=== PATIENT | female | born 1955 | race Caucasian/White ===

== ENCOUNTER → 2018-04-02 02:06 | Emergency (ER) | payer BC, MEDICARE ==
--- OUTSIDE RECORDS SUMMARY | 2018-04-02 02:32 | XMS REPORT ---
:1955 External Reference #:[id number] Author Organization [facility] Address [address] [place] [address] Phone [phone] Care Team Providers Name Role Phone Marisabel Stockton M.D. Primary Care Physician Unavailable Payers Type Date Identification Numbers Payment Provider Subscriber Commercial Effective: Policy Number: Lulu Fernandez 2017 [id number] Group Name: [place] of [place] [address] PayID: [id number] MAR[place]N Aguilar [id number] Medigap Part B Effective: Policy Number: Lulu Fernandez 2011 [id number] Expires: 2017 Group Name: BC/BS of [place] [address] PayID: [id number] MARILYN Aguilar [id number] Health Maintenance Effective: Policy Number: [facility] ([facility]) 09/02/1999 [id number] Rebecca Expires: 09/01/2012 Group Number: [id number] [address] PayID: [id number] [place] [address] Medigap Part B Effective: Policy Number: Lulu Fernandez 09/07/2005 [id number] Expires: 03/02/2010 Group Number: [id number] [address] [address] Group Name: BC/[place] [id number] PayID: [id number] Medigap Part B Effective: Policy Number: [employer](Open Choice) Aaron Fernandez 09/02/2012 [id number] PayID: [id number] [address] [place] [address] Problems Date Description Provider Status Onset: 05/10/2012 Disorder of bone Marisabel Stockton M.D. Active Onset: 10/18/2015 Osteochondropathy Marisabel Stockton M.D. Active Family History Date Family Member(s) Problem(s) Comments : (age Father due to DC 78 Years) Father Hyperlipidemia Father HTN Onset: (age 84 Mother COPD age 88, Years) complications of aspiration of tablet and atelectasis/ pneumothorax Mother Former Smoker First Brother No Current Problems Second Brother No Current Problems : (age Paternal Grandfather due to Old Age 92 Years) Onset: (age 92 Paternal Grandmother Old Age Years) : (age Maternal Grandfather due to Pneumonia 78 Years) : (age Maternal Grandmother due to Brain 40 Years) Tumor Social History Type Date Description Comments Marital Status Lives With Spouse 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- [employer] Cigarette Use Never Smoked Cigarettes ETOH Use Currently consumes 1 glasses (sometimes 2 glasses per of wine daily day) Recreational Drug Use Denies Drug Use Daily Caffeine Consumes on average 1 cup of coffee per day Exercise Type/Frequency exercises regularly Sun Exposure moderate amount of sun exposure Sun Exposure Uses sunscreen or covers up Seat Belt/Car Seat always uses seat belt 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, with coloposcopy 2000 paps normal since Allergies, Adverse Reactions, Alerts Date Description Reaction Status Severity Comments 10/18/2016 Bee Sting active Moderate to Severe near anaphylaxis (needed steroids, no epi) 01/05/2017 Celery active 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 Mouth Once Blegen, Weekly For M.D. Vitamin-D Deficiency Multiple 04/12 Active Tablets over 50 Marisabel Vitamins/Womens P. Blegen, M.D. Clobetasol 04/07 Active Cream 0.05% 15gm use once per N76.1 Marisabel day to vulva P. as directed Blegen, for 1-2 M.D. weeks Amoxicillin 09/13 Hx Tablets 500mg 20tab take 1 J01.90 Orlin s tablet by [place] - mouth every , 10/17 12 hours for 10 days for infection. Do not fill until patient calls. Vitamin D 02/23 Hx Capsules [id number] 4caps Take 1 Marisabel (Ergocalciferol Capsule By P. ) - Mouth Once Blegen, 06/03 Weekly For .D. Vitamin D Deficiency Ciprodex 01/11 Hx Suspension 0.3-0.1% 50ml instill 4 drops into [place] - affected ear , 09/13 2 times per day for 5 days for outer ear inflammation caused by infection Ergocalciferol 10/31 Hx Capsules [id number] 4caps one by mouth Q Week for P. - vitamin d Blegen, 02/23 deficiency M.D. No Active 01/01 Hx Unknown Medications - 01/01 Omeprazole 04/[address] 20mg 30cap 1 by mouth 530.81 Madison s every day Doreen Mckenzie M.D., 01/01 R.D. /2014 Ilotycin 02/10 Hx Ointment 5mg/GM 1unit apply a thin 782.9 s layer to Mandie, - right outer COLLECTIONS SPECIALIST-C 01/01 eyelid twice /2014 a day Vitamin D-3 03/19 Hx Tablets 2000Unit 1 po qd P. - Blegen, 04/12 M.D. Valtrex 02/19 Hx Tablets 1gm 8tabs take two tablets by P. - mouth twice Blegen, 01/01 a day for 1 M.D. day as needed for cold sore outbreak Amoxicillin 02/10 Hx Tablets 875mg 20tab 1 by mouth 461.8 Madison s twice a day Doreen Mckenzie M.D., 10/18 R.D. /2015 Ranitidine HCL 06/13 Hx Tablets 150mg 60tab 1 po bid prn Marisabel s for P. - heartburn Blegen, 04/12 M.D. Doxycycline 06/13 Hx Capsules 100mg 2caps 2 po x 1 for Marisabel Monohydrate /2008 lyme P. - prophylaxis Blegen, 04/12 M.D. Pantoprazole 05/[address] 40mg 30tab one po qd as Marisabel Sodium s directed for P. - gerd Blegen, 04/12 M.D. Evista 03/21 Hx Tablets 60mg 30tab 1 po qd Marisabel s P. - Blegen, 03/21 M.D. Evista 03/21 Hx Tablets 60mg 30tab 1 po qd 733.99 Alaina s A. - Hyun, 02/18 F.N.P.C. /2012 Premarin 02/27 Hx Cream 0.625mg/G 1Tube apply 627.8 Marisabel Vaginal M intravaginal P. - ly up to qd Blegen, 02/18 x 2 weeks M.D. then up to twice per week Protonix 05/08 Hx Tablets 40mg 30tab 1 po qd s P. - Blegen, 04/16 M.D. Kenalog 02/14 Hx Cream 0.1% 30G Apply bid To 692.6 Itchy Rash Miranda Ace, 04/16 M.D. Fosamax 02/15 Hx Tablets 70mg 4tabs One Q Week Marisabel On Empty P. - Stomach DO Blegen, 04/16 Not Lie Down M.D. /2007 For At Least 1/2 HR After Taking Protonix 02/09 Hx 40mg 30uni one qd Miroslava /2003 ts Miranda Ace, 02/15 M.D. Aerobid 01/12 Hx Inhaler One two puffs by Marisabel aerochamber P. - twice daily Blegen, 04/16 - rinse M.D. mouth with water after last puffs Aerochamber - 01/12 Hx Unit One Use With Marisabel Metered Dose P. - Inhalers Blegen, 04/16 M.D. Ranitidine 01/12 Hx 150mg 60uni One PO bid ts P. - Blegen, 02/09 M.D. 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 - stomach, DO Blegen, 02/15 not lay M.D. down after taking Immunizations CPT Code Status Date Vaccine Lot # [id number] Given 08/16/2017 Influenza Virus Vaccine, Quadrivalent, 3 Yr > [id number] Quad, Preserv Free 31726 Given 02/19/2013 Tdap (Adacel) [id number] Given 03/11/2000 DT (Adult) [id number] Refused 01/12/2016 Influenza Virus Vaccine, Quadrivalent, 3 Yr > Quad , Preserv Free Vital Signs Date Vital Result Comment 03/03/2018 Weight 105.00 lb Weight in kg's 47.628 BP Systolic 130 mmHg BP Diastolic 76 mmHg Heart Rate 52 /min Body Temperature 97.7 F Respiratory Rate 18 /min O2 % BldC Oximetry 97 % 10/18/2016 Weight 105.00 lb Weight in kg's 47.628 BP Systolic 110 mmHg BP Diastolic 70 mmHg Heart Rate 56 /min Body Temperature 98.3 F Respiratory Rate 12 /min Height 61.5 inches 5'1.50" BMI (Body Mass Index) 19.5 kg/m2 09/13/2016 Weight 106.00 lb Weight in kg's 48.082 BP Systolic 136 mmHg BP Diastolic 84 mmHg Heart Rate 62 /min Body Temperature 98.5 F Respiratory Rate 18 /min O2 % BldC Oximetry 98 % 08/30/2016 Weight 107.00 lb Weight in kg's 48.535 BP Systolic 120 mmHg BP Diastolic 74 mmHg Heart Rate 56 /min Body Temperature 99.0 F Respiratory Rate 12 /min 03/19/2016 Weight 104.00 lb Weight in kg's 47.174 BP Systolic 90 mmHg BP Diastolic 60 mmHg Heart Rate 49 /min Body Temperature 97.4 F tylenol at 4pm 01/12/2016 Weight 105.00 lb Weight in kg's 47.628 BP Systolic 120 mmHg BP Diastolic 70 mmHg Heart Rate 52 /min Body Temperature 98.6 F 10/18/2015 Weight 104.00 lb Weight in kg's 47.174 BP Systolic 102 mmHg BP Diastolic 64 mmHg Heart Rate 62 /min Height 61.5 inches 5'1.50" BMI (Body Mass Index) 19.3 kg/m2 01/01/2015 Weight 106.00 lb Weight in kg's 48.082 BP Systolic 122 mmHg BP Diastolic 74 mmHg Heart Rate 58 /min Body Temperature 97.5 F O2 % BldC Oximetry 98 % 04/19/2014 Weight 99.00 lb Weight in kg's 44.906 BP Systolic 120 mmHg BP Diastolic 60 mmHg Heart Rate 61 /min Body Temperature 97.4 F 04/12/2014 Weight 100.00 lb Weight in kg's 45.360 BP Systolic 108 mmHg BP Diastolic 64 mmHg Heart Rate 60 /min Height 62 inches 5'2" BMI (Body Mass Index) 18.3 kg/m2 02/10/2014 Weight 108.00 lb Weight in kg's 48.989 BP Systolic 130 mmHg BP Diastolic 78 mmHg Heart Rate 56 /min 02/19/2013 Weight 104.00 lb Weight in kg's 47.174 BP Systolic 106 mmHg BP Diastolic 78 mmHg Heart Rate 48 /min Height 62 inches 5'2" BMI (Body Mass Index) 19.0 kg/m2 04/07/2012 Weight 103.00 lb Weight in kg's 46.721 BP Systolic 106 mmHg BP Diastolic 66 mmHg Heart Rate 56 /min Body Temperature 97.5 F Height 61.5 inches 5'1.50" BMI (Body Mass Index) 19.1 kg/m2 03/07/2012 Weight 106.00 lb Weight in kg's 48.082 BP Systolic 100 mmHg BP Diastolic 66 mmHg Heart Rate 78 /min Body Temperature 98.7 F 02/11/2012 Weight 106.00 lb Weight in kg's 48.082 BP Systolic 100 mmHg BP Diastolic 70 mmHg Heart Rate 68 /min Body Temperature 98.0 F 04/18/2011 Weight 106.00 lb Weight in kg's 48.082 BP Systolic 110 mmHg BP Diastolic 70 mmHg Heart Rate 56 /min Height 61.5 inches 5'1.50" BMI (Body Mass Index) 19.7 kg/m2 07/26/2009 Weight 107.00 lb Weight in kg's 48.535 BP Systolic 102 mmHg BP Diastolic 60 mmHg Heart Rate 60 /min 06/13/2009 Weight 107.00 lb Weight in kg's 48.535 Body Temperature 97.6 F 05/02/2009 Weight 105.00 lb Weight in kg's 47.628 BP Systolic 118 mmHg BP Diastolic 72 mmHg Heart Rate 68 /min Height 62 inches 5'2" BMI (Body Mass Index) 19.2 kg/m2 Last Menstrual Period 0 04/16/2008 Weight 106.00 lb Weight in kg's 48.082 BP Systolic 102 mmHg BP Diastolic 64 mmHg Heart Rate 60 /min Height 61.50 inches 5'1.50" BMI (Body Mass Index) 19.7 kg/m2 12/12/2007 Weight 107.00 lb Weight in kg's 48.535 BP Systolic 102 mmHg BP Diastolic 70 mmHg Heart Rate 72 /min Body Temperature 96.6 F Height 62 inches 5'2" BMI (Body Mass Index) 19.6 kg/m2 02/27/2007 Weight 107.00 lb Weight in kg's 48.535 BP Systolic 118 mmHg BP Diastolic 62 mmHg Heart Rate 58 /min Height 62 inches 5'2" BMI (Body Mass Index) 19.6 kg/m2 07/25/2005 Weight 105.00 lb Weight in kg's 47.628 BP Systolic 110 mmHg BP Diastolic 60 mmHg Heart Rate 72 /min Respiratory Rate 18 /min Height 61 inches 5'1" BMI (Body Mass Index) 19.8 kg/m2 05/08/2005 Weight 104.00 lb Weight in kg's 47.174 BP Systolic 122 mmHg BP Diastolic 68 mmHg Height 61 inches 5'1" BMI (Body Mass Index) 19.6 kg/m2 02/14/2005 Weight 105.00 lb Weight in kg's 47.628 BP Systolic 100 mmHg BP Diastolic 60 mmHg Height 61 inches 5'1" BMI (Body Mass Index) 19.8 kg/m2 05/16/2004 Weight 105.00 lb Weight in kg's 47.628 BP Systolic 116 mmHg BP Diastolic 80 mmHg Height 61 inches 5'1" BMI (Body Mass Index) 19.8 kg/m2 02/16/2004 Weight 105.50 lb Weight in kg's 47.855 BP Systolic 92 mmHg BP Diastolic 60 mmHg Heart Rate 56 /min Height 61 inches BMI (Body Mass Index) 19.9 kg/m2 03/15/2003 Weight 103.50 lb Weight in kg's 46.948 BP Systolic 96 mmHg BP Diastolic 62 mmHg Body Temperature 97.4 F 02/09/2003 Weight 103.00 lb Weight in kg's 46.721 BP Systolic 90 mmHg BP Diastolic 60 mmHg 01/12/2003 Weight 104.00 lb Weight in kg's 47.174 BP Systolic 110 mmHg BP Diastolic 62 mmHg Heart Rate 58 /min 12/07/2002 Weight 109.00 lb Weight in kg's 49.442 BP Systolic 100 mmHg BP Diastolic 74 mmHg Heart Rate 50 /min Body Temperature 98.5 F 09/08/2002 Weight 105.00 lb Weight in kg's 47.6 BP Systolic 96 mmHg BP Diastolic 60 mmHg 04/28/2002 Weight 106.00 lb Weight in kg's 48.1 BP Systolic 110 mmHg BP Diastolic 62 mmHg Heart Rate 72 /min Respiratory Rate 24 /min Height 61 inches BMI (Body Mass Index) 20.0 kg/m2 Results Test Date Test Result H/L Range Note Laboratory test finding 03/03/2018 Lyme Disease Serology Negative Negative 1 Comp Metabolic Panel 10/26/2016 Sodium 138 mmol/L 133-145 Potassium 4.5 mmol/L 3.5-5.0 Chloride 103 mmol/L 101-111 Co2 Carbon Dioxide 30 mmol/L 22-32 Anion Gap 5 mmol/L 2-11 Glucose 80 mg/dL 70-100 Blood Urea Nitrogen 17 mg/dL 6-24 Creatinine 0.83 mg/dL 0.51-0.95 BUN/Creatinine Ratio 20.5 High 8-20 Calcium 9.6 mg/dL 8.6-10.3 Total Protein 6.9 g/dL 6.4-8.9 Albumin 4.1 g/dL 3.2-5.2 Globulin 2.8 g/dL 2-4 Albumin/Globulin Ratio 1.5 1-3 Total Bilirubin 0.80 mg/dL 0.2-1.0 Alkaline Phosphatase 64 U/L 34-104 Alt 16 U/L 7-52 Ast 22 U/L 13-39 Egfr Non- 69.4 >60 Egfr 89.3 >60 2 Lipid Profile (Trig/Chol/HDL) 10/26/2016 Triglycerides 108 mg/dL 3 Cholesterol 272 mg/dL 4 HDL Cholesterol 75.1 mg/dL 5 LDL Cholesterol 175 mg/dL 6 Laboratory test 10/26/2016 Vitamin D Total 36.0 ng/mL 30-50 7 finding 25(Oh) Laboratory test 12/28/2015 Vitamin D Total 45.0 ng/mL 30-50 8 finding 25(Oh) Laboratory test 10/18/2015 Hepatitis C Antibody Nonreactive Nonreactive finding Laboratory test 10/18/2015 Vitamin D Total 23.0 ng/mL Low 30-50 9 finding 25(Oh) Comp Metabolic Panel 10/18/2015 Sodium 138 mmol/L 133-145 Potassium 4.3 mmol/L 3.5-5.0 Chloride 102 mmol/L 101-111 Co2 Carbon Dioxide 29 mmol/L 22-32 Anion Gap 7 mmol/L 2-11 Glucose 74 mg/dL 70-100 Blood Urea Nitrogen 15 mg/dL 6-24 Creatinine 0.74 mg/dL 0.51-0.95 BUN/Creatinine Ratio 20.3 High 8-20 Calcium 9.4 mg/dL 8.6-10.3 Total Protein 7.1 g/dL 6.4-8.9 Albumin 4.5 g/dL 3.2-5.2 Globulin 2.6 g/dL 2-4 Albumin/Globulin Ratio 1.7 1-3 Total Bilirubin 0.80 mg/dL 0.2-1.0 Alkaline Phosphatase 67 U/L 34-104 Alt 23 U/L 7-52 Ast 29 U/L 13-39 Egfr Non- 79.5 >60 Egfr 102.3 >60 10 Lipid Profile (Trig/Chol/HDL) 10/18/2015 Triglycerides 65 mg/dL 11 Cholesterol 257 mg/dL 12 HDL Cholesterol 88.3 mg/dL 13 LDL Cholesterol 156 mg/dL 14 CBC Auto Diff 10/18/2015 White Blood Count 7.3 10^3/uL 3.5-10.8 Red Blood Count 4.41 10^6/uL 4.0-5.4 Hemoglobin 13.6 g/dL 12.0-16.0 Hematocrit 42 % 35-47 Mean Corpuscular Volume 94 fL 80-97 Mean Corpuscular Hemoglobin 31 pg 27-31 Mean Corpuscular HGB Conc 33 g/dL 31-36 Red Cell Distribution Width 13 % 10.5-15 Platelet Count 269 10^3/uL 150-450 Mean Platelet Volume 8 um3 7.4-10.4 Abs Neutrophils 4.9 10^3/uL 1.5-7.7 Abs Lymphocytes 1.5 10^3/uL 1.0-4.8 Abs Monocytes 0.6 10^3/uL 0-0.8 Abs Eosinophils 0.2 10^3/uL 0-0.6 Abs Basophils 0.1 10^3/uL 0-0.2 Abs Nucleated RBC 0 10^3/uL Granulocyte % 66.9 % 38-83 Lymphocyte % 20.6 % Low 25-47 Monocyte % 8.9 % 1-9 Eosinophil % 2.9 % 0-6 Basophil % 0.7 % 0-2 Nucleated Red Blood Cells % 0 CBC Auto Diff 04/19/2014 White Blood Count 5.6 10^3/uL 4.8-10.8 Red Blood Count 3.97 10^6/uL Low 4.0-5.4 Hemoglobin 12.8 g/dL 12.0-16.0 Hematocrit 37 % 35-47 Mean Corpuscular Volume 93 fL 80-97 Mean Corpuscular Hemoglobin 32 pg High 27-31 Mean Corpuscular HGB Conc 35 g/dL 31-36 Red Cell Distribution Width 12 % 10.5-15 Platelet Count 329 10^3/uL 150-450 Mean Platelet Volume 8 um3 7.4-10.4 Abs Neutrophils 3.9 10^3/uL 1.5-7.7 Abs Lymphocytes 1.1 10^3/uL 1.0-4.8 Abs Monocytes 0.5 10^3/uL 0-0.8 Abs Eosinophils 0.1 10^3/uL 0-0.6 Abs Basophils 0 10^3/uL 0-0.2 Abs Nucleated RBC 0.01 10^3/uL Granulocyte % 69.6 % 38-83 Lymphocyte % 19.8 % Low 25-47 Monocyte % 8.3 % 1-9 Eosinophil % 1.5 % 0-6 Basophil % 0.8 % 0-2 Nucleated Red Blood Cells % 0.1 Comp Metabolic Panel 04/19/2014 Sodium 138 mmol/L 133-145 Potassium 4.0 mmol/L 3.7-5.6 Chloride 104 mmol/L 101-111 Co2 Carbon Dioxide 28 mmol/L 22-32 Anion Gap 6 mmol/L 2-11 Glucose 85 mg/dL 70-100 Blood Urea Nitrogen 16 mg/dL 6-24 Creatinine 0.76 mg/dL 0.51-0.95 BUN/Creatinine Ratio 21.1 High 8-20 Calcium 9.1 mg/dL 8.6-10.3 Total Protein 6.5 g/dL 6.4-8.9 Albumin 3.9 g/dL 3.2-5.2 Globulin 2.6 g/dL 2-4 Albumin/Globulin Ratio 1.5 1-3 Total Bilirubin 0.40 mg/dL 0.2-1.0 Alkaline Phosphatase 67 U/L 34-104 Alt 14 U/L 7-52 Ast 20 U/L 13-39 Egfr Non- 77.4 >60 Egfr 99.5 >60 15 Laboratory test finding 04/19/2014 Amylase 57 U/L 29-103 Lipase 18 U/L 11.0-82.0 Surgical Pathology 04/13/2014 S RUN DATE: SEE NOTE> 16 Urinalysis Profile 04/12/2014 Urine Color Yellow Urine Appearance Turbid Urine Specific [place] 1.020 1.010-1.030 Urine pH 5.0 5-9 Urine Urobilinogen Negative Negative Urine Ketones Negative Negative Urine Protein Negative Negative Urine Leukocytes Negative Negative Urine Blood 1+ Negative Urine Nitrite Negative Negative Urine Bilirubin Negative Negative Urine Glucose Negative Negative Urine White Blood Cell Trace(0-5/hpf) Absent Urine Red Blood Cell Trace Absent Urine Bacteria Absent Absent Urine DIP 04/12/2014 Specific [place] 1.020 1.01-1.02 Urine pH 5 5-6 Leukocytes NEG Neg Urine Nitrites NEG Neg Total Protein, Urine NEG Neg Urine Glucose NORM Norm Urine Ketones NEG Neg Urobilinogen NORM Norm Urine Bilirubin NEG Neg Urine Blood TRACE Neg Laboratory test 04/12/2014 Cytology RUN DATE: finding <SEE NOTE> HPV High Risk 04/12/2014 Human Papillomavirus See Comment 18 Source HPV High Risk Type 16, PCR Negative Negative HPV High Risk Type 18, PCR Negative Negative HPV Other Risk types Negative Negative 19 Vitamin D, 25 Hydroxy 04/12/2014 25-Hydroxy Vitamin D2 <4.0 ng/mL 25-Hydroxy Vitamin D3 39 ng/mL 25-Hydroxy Vitamin D Total 39 ng/mL 20 Lipid Profile (Trig/Chol/HDL) 04/12/2014 Triglycerides 89 mg/dL 21 Cholesterol 281 mg/dL 22 HDL Cholesterol 85.5 mg/dL 23 LDL Cholesterol 178 mg/dL 24 Comp Metabolic Panel 04/12/2014 Sodium 137 mmol/L 133-145 Potassium 3.8 mmol/L 3.7-5.6 Chloride 103 mmol/L 101-111 Co2 Carbon Dioxide 30 mmol/L 22-32 Anion Gap 4 mmol/L 2-11 Glucose 86 mg/dL 70-100 Blood Urea Nitrogen 14 mg/dL 6-24 Creatinine 0.74 mg/dL 0.51-0.95 BUN/Creatinine Ratio 18.9 8-20 Calcium 9.2 mg/dL 8.6-10.3 Total Protein 6.8 g/dL 6.4-8.9 Albumin 4.3 g/dL 3.2-5.2 Globulin 2.5 g/dL 2-4 Albumin/Globulin Ratio 1.7 1-3 Total Bilirubin 0.80 mg/dL 0.2-1.0 Alkaline Phosphatase 68 U/L 34-104 Alt 14 U/L 7-52 Ast 22 U/L 13-39 Egfr Non- 79.8 >60 Egfr 102.6 >60 25 NTX (N-Telopeptide) Urine 03/06/2013 Urine Creatinine 80 mg/dL 26 NTX 297 nmol/L Ur NTX-Telo 42 nmol/mmol 19 - 63 27 Comp Metabolic Panel 02/23/2013 Sodium 142 mmol/L 133-145 Potassium 4.1 mmol/L 3.5-5.0 Chloride 107 mmol/L 101-111 Co2 Carbon Dioxide 29.0 mmol/L 22-32 Anion Gap 6.0 mmol/L 2-11 Glucose 96 mg/dL 70-100 Blood Urea Nitrogen 17 mg/dL 6-24 Creatinine 0.70 mg/dL 0.50-1.40 BUN/Creatinine Ratio 24.3 High 8-20 Calcium 9.7 mg/dL 8.1-9.9 Total Protein 7.1 g/dL 6.2-8.1 Albumin 3.8 g/dL 3.2-5.2 Globulin 3.3 g/dL 2-4 Albumin/Globulin Ratio 1.2 1-3 Total Bilirubin 1.0 mg/dL 0.4-1.5 Alkaline Phosphatase 65 U/L 30-110 Alt 19 U/L 14-54 Ast 29 U/L 12-42 Egfr Non- 85.4 >60 Egfr 109.8 >60 28 Laboratory test finding 02/23/2013 Alp Bone Isoenzymes 19 g/L 29 Calcium Ionized 4.76 mg/dL 4.65-5.28 30 Pthi 02/23/2013 PTH Intact 2.8 pmol/L 1.3-9.0 Calcium (PTH Intact) 9.8 mg/dL 8.1-9.9 Protein Electrophoresis Serum 02/23/2013 Albumin (Pep) 3.82 g/dL 3.0- 4.35 Alpha 1 Globulins 0.18 g/dL 0.09-0.33 Alpha 2 Globulin 1.06 g/dL 0.59-1.18 Beta Globulin 0.92 g/dL 0.68-1.02 Gamma Globulin 1.12 g/dL 0.76-1.60 Albumin % (Pep) 53.8 % 46-63 Alpha 1 Globulins % 2.5 % 1.2-5.3 Alpha 2 Globulin % 14.9 % 9-17 Beta Globulin % 13.0 % 10-16 Gamma Globulin % 15.8 % 12-22 Albumin/Globulin Ratio 1.2 0.9-2.0 Total Protein (Pep) 7.1 g/dL 6.2-8.1 Spep Comments (SEE NOTE) 31 Laboratory test finding 02/23/2013 TSH (Thyroid Stimulating 2.08 miu/mL 0.34-5.60 32 Horm) Osteocalcin 24 ng/mL 9 - 42 33 Vitamin D, 25 Hydroxy 02/23/2013 25-Hydroxy Vitamin D2 <4.0 ng/mL 25-Hydroxy Vitamin D3 30 ng/mL 25-Hydroxy Vitamin D Total 30 ng/mL 34 Lipid Profile (Trig/Chol/HDL) 02/23/2013 Triglycerides 86 mg/dL 40-200 Cholesterol 257 mg/dL High Less than 200 HDL Cholesterol 98 mg/dL High 40-60 35 Cholesterol/HDL Ratio 2.6 Average 1-4.44 LDL Cholesterol 141.8 High Less Than 100 36 Laboratory test finding 02/20/2013 HPV Dna High Risk TNP Negative 37 Laboratory test finding 02/19/2013 Cytology RUN DATE: <SEE NOTE> Urine DIP 02/19/2013 Leukocytes ++ Neg Urine Nitrites NEG Neg Urine pH 5 5-6 Total Protein, Urine NEG Neg Urine Glucose NORM Norm Urine Ketones NEG Neg Urobilinogen NORM Norm Urine Bilirubin NEG Neg Urine Blood 50 High Neg Specific [place] 1.02 1.01-1.02 Laboratory test finding 03/07/2012 Strep Screen NEG Neg Urine DIP 04/18/2011 Leukocytes NEG Neg Urine Nitrites NEG Neg Urine pH 5-6 5-6 Total Protein, Urine NEG Neg Urine Glucose NORM Norm Urine Ketones NEG Neg Urobilinogen NORM Norm Urine Bilirubin NEG Neg Urine Blood NEG Neg Specific [place] N/A Low 1.01-1.02 Laboratory test 04/18/2011 Cytology <SEE NOTE> 39 finding Lipid Profile 04/13/2011 Triglyceride 87 mg/dL 40-200 (Trig/Chol/HDL) Cholesterol 263 mg/dL High Less Than 200 40 High Density Lipoprotein 87 mg/dL High 40-60 41 Cholesterol/HDL Ratio 3.02 AVERAGE 1-4.44 Low Density Lipoprotein 159 mg/dL High Less Than 100 42 Comp Metabolic Panel 04/13/2011 Sodium 140 mmol/L 135-145 Potassium 4.0 mmol/L 3.5-5.0 Chloride 103 mmol/L 101-111 Co2 (Carbon Dioxide) 31.0 mmol/L 22-32 Anion Gap 6.0 mmol/L 2-11 43 Glucose 82 mg/dL 70-100 BUN 14 mg/dL 6-24 Creatinine 0.90 mg/dL 0.50-1.40 One Over Creatinine 1.10 BUN/Creatinine Ratio 15.6 8-20 Calcium 10.0 mg/dL High 8.1-9.9 Total Protein 6.5 GM/DL 6.2-8.1 Albumin 4.2 GM/DL 3.6-5.4 Globulin 2.3 GM/DL 2-4 Albumin/Globulin Ratio 1.8 1-3 Bilirubin Total 1.0 mg/dL 0.4-1.5 44 Alkaline Phosphatase 60 U/L 30-110 Alt (SGPT) 18 U/L 14-54 Ast (Sgot) 27 U/L 12-42 eGFR Non- 64.3 > 60 eGFR 82.7 > 60 45 Vitamin D.25 Hydroxy 05/02/2009 25-Hydroxy Vitamin D2 <4.0 ng/mL () 25-Hydroxy Vitamin D3 38 ng/mL () 25-Hydroxy Vitamin D Total 38 ng/mL () 46 Laboratory test finding 05/02/2009 Cytology <SEE NOTE> 47 Urine DIP 05/02/2009 Leukocytes ++ Neg Urine Nitrites NEG Neg Urine pH 5 5-6 Total Protein, Urine NEG Neg Urine Glucose NORM Norm Urine Ketones NEG Neg Urobilinogen NORM Norm Urine Bilirubin NEG Neg Urine Blood NEG Neg Specific [place] N/A Low 1.01-1.02 Lipid Profile (Trig/Chol/HDL) 05/02/2009 Triglyceride 90 mg/dL 40-200 Cholesterol 318 mg/dL High Less Than 200 48 High Density Lipoprotein 102 mg/dL High 40-60 49 Cholesterol/HDL Ratio 3.12 AVERAGE 1-4.44 Low Density Lipoprotein 198 mg/dL High Less Than 100 50 Laboratory test finding 05/02/2009 Helicobacter Pylori Iga AB <=12.50 U/mL () 51 Helicobacter Pylori Igm AB <=30.00 U/mL () 52 CBC With Electronic Diff 05/02/2009 White Blood Count 5.4 CUMM 4.8-10.8 Red Cell Count 4.29 CUMM 4.2-5.4 Hemoglobin 13.9 g/dL 12.0-16.0 Hematocrit 41 % 35-47 Mean Corpuscular Volume 95 um3 79-97 Mean Corpuscular Hemoglob 32 pg High 27-31 Mean Corpuscular HGB Cone 34 g/dL 32-36 Redcell Distribution WDTH 13 % 10.5-15 Platelet Count 270 CUMM 150-450 Mean Platelet Volume 8.3 um3 7.4-10.4 Gran % 65.5 % 38-83 Lymph % 24.7 % Low 25-47 Mononuclear % 6.9 % 1-9 Eosinophil % 2.2 % 0-6 Basophil % 0.7 % 0-2 Abs Lymphs 1.3 1.0-4.8 Abs Mononuclear 0.4 0-0.8 Absolute Neutrophil Count 3.6 1.5-7.7 Abs Eosinophils 0.1 0-0.6 Abs Basophils 0 0-0.2 Laboratory test finding 05/02/2009 TSH 1.63 MIU/ML 0.34-5.60 Comp Metabolic Panel 05/02/2009 Sodium 138 mmol/L 135-145 Potassium 4.6 mmol/L 3.5-5.0 Chloride 104 mmol/L 101-111 Co2 (Carbon Dioxide) 30.0 mmol/L 22-32 Anion Gap 4.0 mmol/L 2-11 53 Glucose 93 mg/dL 70-100 54 BUN 17 mg/dL 6-24 Creatinine 0.90 mg/dL 0.50-1.40 One Over Creatinine 1.10 BUN/Creatinine Ratio 18.9 8-20 Calcium 9.9 mg/dL 8.1-9.9 55 Total Protein 7.4 GM/DL 6.2-8.1 Albumin 4.4 GM/DL 3.6-5.4 Globulin 3.0 GM/DL 2-4 Albumin/Globulin Ratio 1.5 1-3 Bilirubin Total 1.2 mg/dL 0.4-1.5 56 Alkaline Phosphatase 62 U/L 30-110 Alt (SGPT) 19 U/L 14-54 Ast (Sgot) 25 U/L 12-42 eGFR Non- 68.8 > 60 eGFR 83.3 > 60 57 Lipid Profile (Trig/Chol/HDL) 04/16/2008 Triglyceride 89 mg/dL 40-200 Cholesterol 260 mg/dL High Less Than 200 58 High Density Lipoprotein 84 mg/dL High 40-60 59 Cholesterol/HDL Ratio 3.10 AVERAGE 1-4.44 Low Density Lipoprotein 158 mg/dL High Less Than 100 60 Comp Metabolic Panel 04/16/2008 Sodium 141 mmol/L 135-145 Potassium 4.2 mmol/L 3.5-5.0 Chloride 106 mmol/L 101-111 Co2 (Carbon Dioxide) 31.0 mmol/L 22-32 Anion Gap 4.0 mmol/L 2-11 61 Glucose 93 mg/dL 70-105 BUN 19 mg/dL 6-24 Creatinine 0.9 mg/dL 0.5-1.4 One Over Creatinine 1.11 BUN/Creatinine Ratio 21.1 High 8-20 Calcium 9.3 mg/dL 8.1-9.9 62 Total Protein 6.7 GM/DL 6.2-8.1 Albumin 3.9 GM/DL 3.6-5.4 Globulin 2.8 GM/DL 2-4 Albumin/Globulin Ratio 1.4 1-3 Bilirubin Total 0.9 mg/dL 0.4-1.5 Alkaline Phosphatase 53 U/L 30-110 Alt (SGPT) 22 U/L 14-54 Ast (Sgot) 28 U/L 12-42 Urine DIP 04/16/2008 Leukocytes NEG Neg Urine Nitrites NEG Neg Urine pH 5 5-6 Total Protein, Urine NEG Neg Urine Glucose NORM Norm Urine Ketones NEG Neg Urobilinogen NORM Norm Urine Bilirubin NEG Neg Urine Blood NEG Neg Specific [place] NA Low 1.01-1.02 Laboratory test finding 04/16/2008 Cytology <SEE NOTE> 63 Urine DIP 03/31/2007 Leukocytes NEG Neg Urine Nitrites NEG Neg Urine pH 5 5-6 Total Protein, Urine NL Neg Urine Glucose NL Norm Urine Ketones NL Neg Urobilinogen NL Norm Urine Bilirubin NL Neg Urine Blood NL Neg Specific [place] N/A Low 1.01-1.02 Parathyroid Hormone Intact 03/27/2007 Calcium For Pthi 9.4 mg/dL 8.7- 10.2 PTH Intact 4.0 PMOL/L 1.3-9.3 64 Laboratory test finding 03/27/2007 Calcium Ionized 4.97 mg/dL 4.65-5.28 Vitamin D, 25 Hydroxy 28.1 NG/ML 20-100 65 Urine DIP 03/21/2007 Leukocytes NEG Neg Urine Nitrites NEG Neg Urine pH 5 5-6 Total Protein, Urine NEG Neg Urine Glucose NORM Norm Urine Ketones NEG Neg Urobilinogen NORM Norm Urine Bilirubin NEG Neg Urine Blood TRACE Neg Specific [place] NA Low 1.01-1.02 Urine DIP 03/10/2007 Leukocytes neg Neg Urine Nitrites neg Neg Urine pH 5 5-6 Total Protein, Urine neg Neg Urine Glucose norm Norm Urine Ketones neg Neg Urobilinogen norm Norm Urine Bilirubin neg Neg Urine Blood 50 High Neg Specific [place] n/a Low 1.01-1.02 Laboratory test 02/27/2007 Cytology <SEE 66 finding NOTE> Comp Metabolic Panel 02/27/2007 One Over Creatinine 1.11 Anion Gap 5.0 mmol/L 2-11 67 Albumin/Globulin Ratio 1.9 1-3 Albumin 4.2 GM/DL 3.6-5.4 Alkaline Phosphatase 52 U/L 30-110 Alt (SGPT) 22 U/L 14-54 Ast (Sgot) 27 U/L 12-42 BUN 15 mg/dL 6-24 Calcium 9.3 mg/dL 8.7-10.2 Chloride 106 mmol/L 101-111 Co2 (Carbon Dioxide) 30.0 mmol/L 22-32 Globulin 2.2 GM/DL 2-4 Glucose 80 mg/dL 70-105 Potassium 4.1 mmol/L 3.5-5.0 Sodium 141 mmol/L 135-145 Bilirubin Total 1.2 mg/dL 0.4-1.5 Total Protein 6.4 GM/DL 6.2-8.1 BUN/Creatinine Ratio 16.7 8-20 Creatinine 0.9 mg/dL 0.5-1.4 Lipid Profile 02/27/2007 Cholesterol/HDL Ratio 3.18 AVERAGE 1-4.44 (Trig/Chol/HDL) Cholesterol 299 mg/dL High Less Than 200 68 Triglyceride 53 mg/dL 40-200 High Density Lipoprotein 94 mg/dL High 40-60 69 Low Density Lipoprotein 194 mg/dL High Less Than 100 70 Laboratory test finding 02/27/2007 TSH 1.49 MIU/ML 0.34-5.60 Urine Culture And 02/27/2007 Urine Culture SCANT NORMAL URE 71 Sensitivites Sensitivi <SEE NOTE> Urine DIP 02/27/2007 Leukocytes trace Neg Urine Nitrites neg Neg Urine pH 5 5-6 Total Protein, Urine neg Neg Urine Glucose norm Norm Urine Ketones neg Neg Urobilinogen norm' Norm Urine Bilirubin neg Neg Urine Blood 50 High Neg Specific [place] n/a Low 1.01-1.02 Cytology 07/27/2005 Cytology Run: 08/15/05 72 05 <SEE NOTE> Laboratory test 07/25/2005 Thin Layer Pap REC'D-SEE IMAGE finding W/Reflex To HPV For ASCUS Lipid Profile 07/25/2005 Cholesterol 318 mg/dL High Less Than 73, 74 (Trig/Chol/HDL) 200 Triglyceride 60 mg/dL 40-200 73 High Density Lipoprotein 97 mg/dL High 40-60 73, 75 Low Density Lipoprotein 209 mg/dL High Less Than 100 73, 76 Cholesterol/HDL Ratio 3.28 AVERAGE 1-4.44 73 Comp Metabolic Panel 07/25/2005 One Over Creatinine 1.11 73 Anion Gap 5.0 mmol/L 2-11 73, 77 Albumin/Globulin Ratio 1.7 1-3 73 Albumin 4.1 GM/DL 3.6-5.4 73 Alkaline Phosphatase 63 U/L 30-110 73 Alt (SGPT) 21 U/L 14-54 73 Ast (Sgot) 29 U/L 12-42 73 BUN 12 mg/dL 6-24 73 Calcium 9.7 mg/dL 8.7-10.2 73 Chloride 104 mmol/L 101-111 73 Co2 (Carbon Dioxide) 31.0 mmol/L 22-32 73 Globulin 2.4 GM/DL 2-4 73 Glucose 86 mg/dL 70-105 73 Potassium 4.2 mmol/L 3.5-5.0 73 Sodium 140 mmol/L 135-145 73 Bilirubin Total 1.4 mg/dL 0.4-1.5 73 Total Protein 6.5 GM/DL 6.2-8.1 73 BUN/Creatinine Ratio 13.3 8-20 73 Creatinine 0.9 mg/dL 0.5-1.4 73 CBC With Electronic Diff 07/25/2005 White Blood Count 4.8 CUMM 4.8-10.8 73 Abs Basophils 0 0-0.2 73 Abs Eosinophils 0.1 0-0.6 73 Absolute Neutrophil Count 2.7 1.5-7.7 73 Abs Lymphs 1.6 1.0-4.8 73 Abs Mononuclear 0.4 0-0.8 73 Basophil % 0.9 % 0-2 73 Hematocrit 41 % 35-47 73 Hemoglobin 14.0 g/dL 12.0-16.0 73 Eosinophil % 2.2 % 0-6 73 Gran % 56.1 % 38-83 73 Lymph % 32.5 % 20-45 73 Mean Corpuscular HGB Cone 34 g/dL 32-36 73 Mean Corpuscular Hemoglob 32 pg High 27-31 73 Mean Corpuscular Volume 93 um3 79-97 73 Mean Platelet Volume 7.8 um3 7.4-10.4 73 Mononuclear % 8.3 % 1-9 73 Platelet Count 325 CUMM 150-450 73 Red Cell Count 4.38 CUMM 4.2-5.4 73 Redcell Distribution WDTH 11 % 10.5-15 73 Laboratory test finding 07/25/2005 TSH 1.26 MIU/ML 0.34-5.60 73 Urine DIP 07/25/2005 Leukocytes NEG Neg Urine Nitrites NEG Neg Urine pH 5 5-6 Total Protein, Urine NL Neg Urine Glucose NL Norm Urine Ketones NL Neg Urobolinogen NL Norm Urine Bilirubin NL Neg Urine Blood NL Neg Specific [place] N/A Low 1.01-1.02 Laboratory test finding 02/16/2004 Thin Layer Pap W/Reflex REC'D-SEE IMAGE To HPV For ASCUS Urine DIP 02/16/2004 Leukocytes NEG Neg Urine Nitrites NEG Neg Urine pH 5 5-6 Total Protein, Urine NEG Neg Urine Glucose NORM Norm Urine Ketones NEG Neg Urobolinogen NORM Norm Urine Bilirubin NEG Neg Urine Blood NEG Neg Specific [place] NA Low 1.01-1.02 Lipid Profile 02/16/2004 Cholesterol/HDL Ratio 3.23 AVERAGE 1-4.44 (Trig/Chol/HDL) Cholesterol 297 mg/dL High Less Than 200 78 Triglyceride 71 mg/dL 40-200 High Density Lipoprotein 92 mg/dL High 40-60 79 Low Density Lipoprotein 191 mg/dL High Less Than 100 80 Laboratory test finding 09/08/2002 Thin Prep Pap Test REC'D-SEE IMAGE Xray 05/26/2002 REC'D 06/01 Mammograpy-Screening REC'D06/01 Laboratory test finding 04/28/2002 Urine Culture FINAL 81 Urine DIP 04/28/2002 Leukocytes TR Neg Urine Nitrites N Neg Urine pH 5 5-6 Total Protein, Urine N Neg Urine Glucose N Norm Urine Ketones N Neg Urobolinogen N Norm Urine Bilirubin N Neg Urine Blood TR Neg Laboratory test 11/24/2001 Pathology Report LEEP SPECIMEN finding Lipid Profile 04/22/2001 Cholesterol, Total 268 mg/dL High 120.0 - 82 200.0 Chol/HDL Cholesterol 2.8 83 HDL Cholesterol 96 mg/dL 35.0 - 9999.0 LDL/HDL Cholesterol 1.6 84 LDL Cholesterol 156 mg/dL 85 Triglycerides 80 mg/dL 37.0 - 241.0 1 No evidence of antibodies to B. burgdorferi detected. False negative results may occur in recently infected patients (<=2 weeks) due to low or undetectable antibody levels to B. burgdorferi. If recent exposure is suspected, a second sample should be collected and tested in 2-4 weeks. Test Performed by: [facility] [address], [place] [address] 2 Because ethnic data is not always readily available, this report includes an eGFR for both -Americans and non- Americans. The National Kidney Disease Education Program (NKDEP) does not endorse the use of the MDRD equation for patients that are not between the ages of 18 and 70, are , have extremes of body size, muscle mass, or nutritional status, or are non- or non-. According to the National Kidney Foundation, irrespective of diagnosis, the stage of the disease is based on the level of kidney function: Stage Description GFR(mL/min/1.73 m(2)) 1 Kidney damage with normal or decreased GFR 90 2 Kidney damage with mild decrease in GFR 60-89 3 Moderate decrease in GFR 30-59 4 Severe decrease in GFR 15-29 5 Kidney failure <15 (or dialysis) 3 Desirable <150 Borderline high 150-199 High 200-499 Very High >500 4 Desirable <200 Borderline high 200-239 High >239 5 Low <40 Desirable: 40-60 High: >60 6 Desirable: <100 mg/dL Near Optimal: 100-129 mg/dL Borderline High: 130-159 mg/dL High: 160-189 mg/dL Very High: >189 mg/dL 7 [id number] FASTING 10 Because ethnic data is not always readily available, this report includes an eGFR for both -Americans and non- Americans. The National Kidney Disease Education Program (NKDEP) does not endorse the use of the MDRD equation for patients that are not between the ages of 18 and 70, are , have extremes of body size, muscle mass, or nutritional status, or are non- or non-. According to the National Kidney Foundation, irrespective of diagnosis, the stage of the disease is based on the level of kidney function: Stage Description GFR(mL/min/1.73 m(2)) 1 Kidney damage with normal or decreased GFR 90 2 Kidney damage with mild decrease in GFR 60-89 3 Moderate decrease in GFR 30-59 4 Severe decrease in GFR 15-29 5 Kidney failure <15 (or dialysis) 11 Desirable <150 Borderline high 150-199 High 200-499 Very High >500 12 Desirable <200 Borderline high 200-239 High >239 13 Low <40 Desirable: 40-60 High: >60 14 Desirable: <100 mg/dL Near Optimal: 100-129 mg/dL Borderline High: 130-159 mg/dL High: 160-189 mg/dL Very High: >189 mg/dL 15 Because ethnic data is not always readily available, this report includes an eGFR for both -Americans and non- Americans. The National Kidney Disease Education Program (NKDEP) does not endorse the use of the MDRD equation for patients that are not between the ages of 18 and 70, are , have extremes of body size, muscle mass, or nutritional status, or are non- or non-. According to the National Kidney Foundation, irrespective of diagnosis, the stage of the disease is based on the level of kidney function: Stage Description GFR(mL/min/1.73 m(2)) 1 Kidney damage with normal or decreased GFR 90 2 Kidney damage with mild decrease in GFR 60-89 3 Moderate decrease in GFR 30-59 4 Severe decrease in GFR 15-29 5 Kidney failure <15 (or dialysis) 16 RUN DATE: 04/14/14 [facility] LAB LIVE PAGE 1 RUN TIME: [address] [place] [address] Specimen Inquiry Name: KATHERYN FERNANDEZ : [address]: Hilario Whiteside MD Acct: [id number] Unit: [id number] AGE: 59 Location: ENDO Re04/13/14 SEX: F Status: REG REF SPEC: [id number] BHARATHI: 04/13/14-8 [facility] [address]: Hilario Whiteside MD REQ: [id number] RECD: 04/13/14-1229 STATUS: MARCOS ANGELES DR: Marisabel Stockton MD _ ORDERED: LEVEL IV FINAL DIAGNOSIS Colon, rectosigmoid at 15 cm., biopsy: Benign colonic mucosa with surface hyperplastic change. CLINICAL HISTORY Screening colonoscopy with usual bowel habit - every morning with no blood. Negative family history of colorectal cancer; mother - lung cancer (smoker) POST-OPERATIVE DIAGNOSIS Screening colonoscopy to cecum with ease, good prep - only one lesion. Rectosigmoid nodule - follow-up to be determined otherwise normal colon and terminal ileum GROSS DESCRIPTION The specimen is received in formalin labeled Katheryn Fernandez, Biopsy Rectosigmoid Nodule at 15 cm., and consists of a 0.2 x 0.2 x 0.1 cm. harris-pink polypoid soft tissue fragment. Submitted entirely, one cassette. Signed (signature on file) Kellie Gaspar MD 1554 END OF REPORT * ML=Testing performed at Main Lab DEPARTMENT OF PATHOLOGY, [facility] [employer] [place], [place] [address] Cristofer Ortiz M.D. Director [facility] # [id number] 17 RUN DATE: 04/13/14 [facility] LAB LIVE PAGE 1 RUN TIME: 4561 [facility] [employer] [place], [place] [address] Specimen Inquiry Name: KATHERYN FERNANDEZ : [address]: Marisabel Stockton MD Acct: [id number] Unit: [id number] AGE: 59 Location: [facility] Re04/12/14 SEX: F Status: REG REF SPEC: [id number] BHARATHI: 04/12/14-[address] [facility] [address]: Marisabel Stockton MD REQ: [id number] RECD: 04/12/14 STATUS: SOUT _ ORDERED: IMAGE ANALYSIS, HPV/Thin Prep FINAL DIAGNOSIS Negative for Intraepithelial lesion or Malignancy COMMENTS: Specimen sent to [facility] in [place], [place] on 04/13/14 by [id number] at 1143. Results will be reported separately. A. Ectocervical/Endocervical Specimen Adequacy: Satisfactory of evaluation Transformation zone component cannot be definitely identified due to presence of atrophy or other hormonal changes Scanty epithelial component Patient Information: HPV: High risk HPV DNA testing regardless of pap results. Actual Specimen Date: 04/12/14 Post Menopausal?: Y Signed (signature on file) WALESKA Ramirez (ASCP) 04/13 1243 This Pap test was evaluated with the assistance of the ThinPrep Test Imaging System. Due to cytologic findings at the appliance painter and refinisher microscope, comprehensive manual rescreening by a Supervisor Mold Construction may be required. The Pap Smear is a screening test designed to aid in the detection of premalignant and malignant conditions of the uterine cervix. It is not a diagnostic procedure and should not be used as the sole means of detecting cervical cancer. Both false- positive and false- negative reports do occur. Depending on your risk status, a Pap smear shoudl be obtained and evaluated every 1-3 years. END OF REPORT * ML=Testing performed at Main Lab DEPARTMENT OF PATHOLOGY, [address] [place] [address] Cristofer Ortiz M.D. Director [facility] # [id number] 18 RESULT: Ectocervical/Endocervical 19 The following Other High Risk HPV types were not detected: 31, 33, 35, 39, 45, 51, 52, 56, 58, 59, 66, and 68 Test Performed by: [address] [address] [employer]: Ilya Hernandez III, M.D. 20 -- REFERENCE VALUE -- 25-HYDROXY D TOTAL (D2+D3) Optimum levels in the healthy population are 20-50, patients with bone disease may benefit from higher levels within this range. Test Performed by: [address] [address] [employer]: Ilya Hernandez III, M.D. 21 Desirable <150 Borderline high 150-199 High 200-499 Very High >500 22 Desirable <200 Borderline high 200-239 High >239 23 Low <40 Desirable: 40-60 High: >60 24 Desirable <100 Near Optimal 100-129 Borderline high 130-159 High 160-189 Very High >189 25 Because ethnic data is not always readily available, this report includes an eGFR for both -Americans and non- Americans. The National Kidney Disease Education Program (NKDEP) does not endorse the use of the MDRD equation for patients that are not between the ages of 18 and 70, are , have extremes of body size, muscle mass, or nutritional status, or are non- or non-. According to the National Kidney Foundation, irrespective of diagnosis, the stage of the disease is based on the level of kidney function: Stage Description GFR(mL/min/1.73 m(2)) 1 Kidney damage with normal or decreased GFR 90 2 Kidney damage with mild decrease in GFR 60-89 3 Moderate decrease in GFR 30-59 4 Severe decrease in GFR 15-29 5 Kidney failure <15 (or dialysis) 26 Test Performed by: [address], [place] [address] [employer]: Nicky Quiroz, Ph.D. 27 Units of measurement are: nmol Bone Collagen Equivalents/mmol Creatinine 28 Because ethnic data is not always readily available, this report includes an eGFR for both -Americans and non- Americans. The National Kidney Disease Education Program (NKDEP) does not endorse the use of the MDRD equation for patients that are not between the ages of 18 and 70, are , have extremes of body size, muscle mass, or nutritional status, or are non- or non-. According to the National Kidney Foundation, irrespective of diagnosis, the stage of the disease is based on the level of kidney function: Stage Description GFR(mL/min/1.73 m(2)) 1 Kidney damage with normal or decreased GFR 90 2 Kidney damage with mild decrease in GFR 60-89 3 Moderate decrease in GFR 30-59 4 Severe decrease in GFR 15-29 5 Kidney failure <15 (or dialysis) 29 -- REFERENCE VALUE -- <=14 (Premenopausal) <=22 (Postmenopausal) Test Performed by: [place] [address] [employer]: Ilya Hernandez III, M.D. 30 FASTING 31 Normal serum electrophoretic pattern. 32 FASTING 33 Test Performed by: [place] [address] [employer]: Ilya Hernandez III, M.D. 34 -- REFERENCE VALUE -- 25-HYDROXY D TOTAL (D2+D3) Optimum levels in the normal population are 25-80 Test Performed by: [place] [address] [employer]: Ilya Hernandez III, M.D. 35 HDL Interpretation: Undesirable: High Risk: Less than 40 mg/dL Desirable: Low Risk: Greater than 60 mg/dL 36 LDL Interpretation: Low Risk Optimal Level: LDL Less than 100 mg/dL Near or Above Optimal: LDL 100-129 mg/dL Borderline High Risk: LDL 130-159 mg/dL High Risk: LDL 160-189 mg/dL Very High Risk: LDL Greater than 189 mg/dL 37 High Risk HPV DNA Detection was cancelled on 02/22/2013 at 13:50; Quantity not sufficient. Test Performed by: [facility] - [address] [address] [employer] Operator: Ilya Hernandez III, M.D. 38 RUN DATE: 02/20/13 [facility] LAB LIVE PAGE 1 RUN TIME: [address] [place] [address] Specimen Inquiry Name: FERNANDEZKATHERYN Ronni : [address]: Marisabel Stockton MD Acct: [id number] Unit: [id number] AGE: 58 Location: [facility] Re02/19/13 SEX: F Status: REG REF SPEC: [id number] BHARATHI: 02/19/13-[address] [facility] [address]: Marisabel Stockton MD REQ: [id number] RECD: 02/19/13-1231 STATUS: SOUT _ ORDERED: IMAGE ANALYSIS, HPV / Thin Prep FINAL DIAGNOSIS Negative for Intraepithelial lesion or Malignancy COMMENTS: Specimen sent to [facility] in [place], [place] on 02/20/13 by [id number] at 1559. Results will be reported separately. Less than 8 mls of fluid left in vial, sample will most likely be quantity not sufficient for HPV testing. A. Ectocervical/Endocervical Specimen Adequacy: Satisfactory of evaluation Transformation zone component cannot be definitely identified due to presence of atrophy or other hormonal changes Patient Information: HPV: High risk HPV DNA testing regardless of pap results. Actual Specimen Date: 02/19/13 Date of Last Specimen: 04/18/11 Post Menopausal?: Y Signed (signature on file) Des James WALESKA (ASCP) 02/20 5067 This Pap test was evaluated with the assistance of the PumpUpPrep Test Imaging System. Due to cytologic findings at the appliance painter and refinisher microscope, comprehensive manual rescreening by a Supervisor Mold Construction may be required. The Pap Smear is a screening test designed to aid in the detection of premalignant and malignant conditions of the uterine cervix. It is not a diagnostic procedure and should not be used as the sole means of detecting cervical cancer. Both false- positive and false- negative reports do occur. Depending on your risk status, a Pap smear shoudl be obtained and evaluated every 1-3 years. END OF REPORT * ML=Testing performed at Main Lab DEPARTMENT OF PATHOLOGY, [address] [place] [address] Cristofer Ortiz M.D. Director [facility] Permit #[id number] ---- RUN DATE: 04/19/11 [facility] LIVE PAGE 1 RUN TIME: 1428 Specimen Inquiry RUN USER: INTERFACE -- Name: KATHERYN FERNANDEZ [facility]#: [id number] Status: REG REF Re04/18/11 Age/Sex: 56/F Unit#: [id number] Location: [facility]. : [birth year] -- Specimen: [id number] SOUT Spec Date: 04/18/[address]: Anjelica peña NP Spec Type: CYTOLOGY Received: 04/19/11-0842 Copies to: SOURCE ECTOCERVICAL/ENDOCERVICAL Thin Prep with Reflex HPV Test PATIENT INFORMATION ACTUAL COLLECTION DATE: 04/18/11 POST MENOPAUSAL? Yes ADEQUACY OF SPECIMEN Satisfactory for evaluation * Transformation zone component cannot be definitely identified due to prese nce * of atrophy or other hormonal changes. * DIAGNOSIS NEGATIVE FOR INTRAEPITHELIAL LESION OR MALIGNANCY * This Pap test was evaluated with the assistance of the ThinPrep Pap Test Imaging System. The Pap Smear is a screening test designed to aid in the detection of premalign ant and malignant conditions of the uterine cervix. It is not a diagnostic procedure a nd should not be used as the sole means of detecting cervical cancer. Both false- positiv e and false-negative reports do occur. Depending on your risk status, a Pap smear mary uld be obtained and evaluated every one to three years. Initial evaluation performed by Arleen JAMES([facility]) 04/19/11 Final Interpretation electronically signed by: Arleen JAMES([facility]) 04/19/11 1427 -- -- DEPARTMENT OF PATHOLOGY, [address] [place] [address] [facility] Permit #[id number] Cristofer Ortiz M.D. Director Tom Galicia M.D. Juvenile Corrections Officer jose -- 40 CHOLESTEROL INTERPRETATION: Desirable: Less than 200 MG/DL Borderline-High Risk: 200-239 MG/DL High-Risk: 240 MG/DL and over 41 HDL INTERPRETATION: Undesirable: High Risk: Less than 40 MG/DL Desirable: Low Risk: Greater than 60 MG/DL 42 LDL INTERPRETATION: Low Risk Optimal Level: LDL Less than 100 MG/DL Near or Above Optimal: LDL 100-129 MG/DL Borderline High Risk: LDL 130-159 MG/DL High Risk: LDL 160-189 MG/DL Very High Risk: LDL Greater than 189 MG/DL 43 Anion gap measurement may be of limited value in the presence of any alkalosis, especially in a combined acid base disorder. . 44 A metabolite of Naproxen, O-desmethylnaproxen, has been shown to interfere with the [place] method for measuring total bilirubin. Samples from patients who have taken Naproxen have shown spurious elevation in total bilirubin levels. 45 Because ethnic data is not always readily available, this report includes an eGFR for both -Americans and non- Americans. The National Kidney Disease Education Program (NKDEP) does not endorse the use of the MDRD equation for patients that are not between the ages of 18 and 70, are , have extremes of body size, muscle mass, or nutritional status, or are non- or non-. According to the National Kidney Foundation, irrespective of diagnosis, the stage of the disease is based on the level of kidney function: Stage Description GFR(mL/min/1.73 m(2)) 1 Kidney damage with normal or decreased GFR 90 2 Kidney damage with mild decrease in GFR 60-89 3 Moderate decrease in GFR 30-59 4 Severe decrease in GFR 15-29 5 Kidney failure <15 (or dialysis) 46 -- REFERENCE VALUE -- 25-HYDROXY D TOTAL (D2+D3) Optimum levels in the normal population are 25-80 Test Performed by: [facility] Dpt of Lab Med and Pathology [address] [place], [place] [address] [employer] Operator: Ilya Hernandez III, M.D. 47 ---- RUN DATE: 05/03/09 [facility] LIVE PAGE 1 RUN TIME: 1139 Specimen Inquiry RUN USER: INTERFACE -- [id number] Status: REG REF Re05/02/09 Age/Sex: 54/F Unit#: [id number] Location: [facility] : 51 -- Specimen: [id number] [facility] Spec Date: 05/02/[address] [facility] [address]: Marisabel goddard MD Spec Type: CYTOLOGY Received: 05/03/09 Copies to: SOURCE ECTOCERVICAL/ENDOCERVICAL Thin Prep with Reflex HPV Test PATIENT INFORMATION ACTUAL COLLECTION DATE: 05/02/09 POST MENOPAUSAL? Yes ADEQUACY OF SPECIMEN Satisfactory for evaluation * Transformation zone component identified * DIAGNOSIS NEGATIVE FOR INTRAEPITHELIAL LESION OR MALIGNANCY * This Pap test was evaluated with the assistance of the ThinPrep Pap Test Imaging System. The Pap Smear is a screening test designed to aid in the detection of premalign ant and malignant conditions of the uterine cervix. It is not a diagnostic procedure a nd should not be used as the sole means of detecting cervical cancer. Both false- positiv e and false-negative reports do occur. Depending on your risk status, a Pap smear mary uld be obtained and evaluated every one to three years. Initial evaluation performed by Arleen JAMES CT([facility]) 05/03/09 Final Interpretation electronically signed by: Arleen JAMES CT([facility]) 05/03/09 1138 -- -- DEPARTMENT OF PATHOLOGY, [address] [place] [address] [facility] Permit #[id number] Chanda Wray M.D. Assistant Dir ector -- 48 CHOLESTEROL INTERPRETATION: Desirable: Less than 200 MG/DL Borderline-High Risk: 200-239 MG/DL High-Risk: 240 MG/DL and over 49 HDL INTERPRETATION: Undesirable: High Risk: Less than 40 MG/DL Desirable: Low Risk: Greater than 60 MG/DL 50 LDL INTERPRETATION: Low Risk Optimal Level: LDL Less than 100 MG/DL Near or Above Optimal: LDL 100-129 MG/DL Borderline High Risk: LDL 130-159 MG/DL High Risk: LDL 160-189 MG/DL Very High Risk: LDL Greater than 189 MG/DL 51 -- REFERENCE VALUE -- <=12.50 (negative) 12.51-19.99 (equivocal) >=20.00 (positive) Research Use Only Test Performed by: [facility] Dpt of Lab Med and Pathology [address] [place] [address] Oil Refinery Operator: Ilya Hernandez III, M.D. 52 -- REFERENCE VALUE -- <=30.00 (negative) 30.01-39.99 (equivocal) >=40.00 (positive) Research Use Only Test Performed by: [facility] D[facility] of Lab Med and Pathology [address] [place] [address] Oil Refinery Operator: Ilya Hernandez III, M.D. 53 Anion gap measurement may be of limited value in the presence of any alkalosis, especially in a combined acid base disorder. . 54 Note change in reference range as of 04/22/08. The change was based on recommendations from the [place] [employer]. 55 Please note change in reference range effective 08 . 56 A metabolite of Naproxen, O-desmethylnaproxen, has been shown to interfere with the Jendrassik-Fay method for measuring total bilirubin. Samples from patients who have taken Naproxen have shown spurious elevation in total bilirubin levels. 57 Because ethnic data is not always readily available, this report includes an eGFR for both -Americans and non- Americans. The National Kidney Disease Education Program (NKDEP) does not endorse the use of the MDRD equation for patients that are not between the ages of 18 and 70, are , have extremes of body size, muscle mass, or nutritional status, or are non- or non-. According to the National Kidney Foundation, irrespective of diagnosis, the stage of the disease is based on the level of kidney function: Stage Description GFR(mL/min/1.73 m(2)) 1 Kidney damage with normal or decreased GFR 90 2 Kidney damage with mild decrease in GFR 60-89 3 Moderate decrease in GFR 30-59 4 Severe decrease in GFR 15-29 5 Kidney failure <15 (or dialysis) 58 CHOLESTEROL INTERPRETATION: Desirable: Less than 200 MG/DL Borderline-High Risk: 200-239 MG/DL High-Risk: 240 MG/DL and over 59 HDL INTERPRETATION: Undesirable: High Risk: Less than 40 MG/DL Desirable: Low Risk: Greater than 60 MG/DL 60 LDL INTERPRETATION: Low Risk Optimal Level: LDL Less than 100 MG/DL Near or Above Optimal: LDL 100-129 MG/DL Borderline High Risk: LDL 130-159 MG/DL High Risk: LDL 160-189 MG/DL Very High Risk: LDL Greater than 189 MG/DL 61 Anion gap measurement may be of limited value in the presence of any alkalosis, especially in a combined acid base disorder. . 62 Please note change in reference range effective 08 . 63 ---- RUN DATE: 04/19/08 [facility] NMI LIVE PAGE 1 RUN TIME: 1348 Specimen Inquiry RUN USER: INTERFACE -- [id number] Status: REG REF Re04/16/08 Age/Sex: 53/F Unit#: [id number] Location: [facility] : 53 -- Specimen: [id number] SOUT Spec Date: 04/16/[address]: Alaina noel CNP Spec Type: CYTOLOGY Received: 04/19/08-901 Copies to: SOURCE ECTOCERVICAL/ENDOCERVICAL Thin Prep with Reflex HPV Test PATIENT INFORMATION ACTUAL COLLECTION DATE: 04/16/08 ADEQUACY OF SPECIMEN Satisfactory for evaluation * Transformation zone component identified * DIAGNOSIS NEGATIVE FOR INTRAEPITHELIAL LESION OR MALIGNANCY * This Pap test was evaluated with the assistance of the ThinPrep Pap Test Imaging System. The Pap Smear is a screening test designed to aid in the detection of premalign ant and malignant conditions of the uterine cervix. It is not a diagnostic procedure a nd should not be used as the sole means of detecting cervical cancer. Both false- positive and false-negative reports do occur. Depending on your risk status, a Pap smear mary uld be obtained and evaluated every one to three years. Final Interpretation electronically signed by: Shannen GRANT(ASCP) 04/19/08 134 8 -- -- DEPARTMENT OF PATHOLOGY, [address] [place] [address] [facility] Permit #[id number] Cristofer Ortiz M.D. Director of [employer] -- 64 PLEASE NOTE CHANGE IN REFERENCE RANGE OF 09/09/06. 65 INTERPRETIVE GUIDELINES FOR VITAMIN D (25-HYDROXY): >100 NG/ML (>250 NMOL/L) . . . POTENTIAL TOXICITY 32-100 NG/ML (80-250 NMOL/L) . SUFFICIENCY 20-32 NG/ML (50-80 NMOL/L) . . MILD INSUFFICIENCY 10-20 NG/ML (25-50 NMOL/L) . . MODERATE INSUFFICIENCY 7-10 NG/ML (17.5-25 NMOL/L) . MARKED INSUFFICIENCY <7 NG/ML (<17.5 NMOL/L) . . . DEFICIENCY NOTE: RANGES OBSERVED IN SELECTED POPULATIONS VARY CONSIDERABLY AND A SIGNIFICANT PORTION OF ASYMPTOMATIC PERSONS, PARTICULARLY ELDERLY AND THOSE WITH LIMITED SUN EXPOSURE WILL HAVE VITAMIN D INSUFFICIENCY ASSOCIATED WITH ELEVATED INTACT PARATHYROID HORMONE (INTACT PTH) LEVELS AND ELEVATED RISK OF OSTEOPOROSIS. SERUM LEVELS ABOVE 32 NG/ML (80 NMOL/L) HAVE BEEN RECOMMENDED FOR OPTIMIZING BONE HEALTH WHEREAS LEVELS BELOW 10 NG/ML (25 NMOL/L) ARE ASSOCIATED WITH A SIGNIFICANT RISK OF OSTEOMALACIA. PLEASE NOTE NEW REFERENCE RANGES EFFECTIVE 07 TEST PERFORMED BY: [employer] [address] [place] [address] NOTE: NEW REFERENCE RANGE OF 01/21/07 66 ---- RUN DATE: 03/04/07 [facility] NMI LIVE PAGE 1 RUN TIME: 1357 Specimen Inquiry RUN USER: INTERFACE [id number] KATHERYN FERNANDEZ 52/F <REG REF 02/27> ([id number]) BENOIT Stockton MD, Marisabel -- Specimen: [id number] SOUT Spec Date: 02/27/[address]: Marisabel goddard MD Spec Type: CYTOLOGY Received: 02/28/07-1144 Copies to: SOURCE ECTOCERVICAL/ENDOCERVICAL Thin Prep with Reflex HPV Test PATIENT INFORMATION ACTUAL COLLECTION DATE: 02/27/07 ADEQUACY OF SPECIMEN Satisfactory for evaluation * Transformation zone component cannot be definitely identified due to prese nce * of atrophy or other hormonal changes. * DIAGNOSIS NEGATIVE FOR INTRAEPITHELIAL LESION OR MALIGNANCY * This Pap test was evaluated with the assistance of the PumpUpPrep Pap Test Imaging System. The Pap Smear is a screening test designed to aid in the detection of premalign ant and malignant conditions of the uterine cervix. It is not a diagnostic procedure a nd should not be used as the sole means of detecting cervical cancer. Both false- positive and false-negative reports do occur. Depending on your risk status, a Pap smear mary uld be obtained and evaluated every one to three years. Final Interpretation electronically signed by: Shannen GRANT(ASCP) 03/04/07 135 7 -- -- DEPARTMENT OF PATHOLOGY, [address] [place] [address] [facility] Permit #[id number] Onel Cuellar II, M.D. Director Cristofer Ortiz M.D. Juvenile Corrections Officer D irector -- 67 Anion gap measurement may be of limited value in the presence of any alkalosis, especially in a combined acid base disorder. . 68 Classification: High . 69 Classification: High . 70 CALCULATED LDL APPROXIMATES THE VALUE OF A DIRECT LDL MEASUREMENT. Classification: Very High . 71 SCANT NORMAL URETHRAL OR PERINEAL JASON 10^1-10,000 ORGANISMS/ML (FEW)^CCU 72 Run: 08/15/05 0543 LIS Specimen Inquiry Run User: INTERFACE -- Name: KATHERYN FERNANDEZ Age/Sex: 50/F Location: [facility]#: [id number] Unit#: [id number] Status: REG REF Room/Bed: Re07/25/05 Disch: Att Dr: Marisabel Stockton MD. -- Spec #: [id number] Recd: 07/27/05-1156 Status: MARCOS King #: [id number] SpType: CYTOLOGY Sub Dr: Marisabel Stockton MD. ADEQUACY OF SPECIMEN Satisfactory for evaluation * Transformation zone component identified * DIAGNOSIS NEGATIVE FOR INTRAEPITHELIAL LESION OR MALIGNANCY * CYTOLOGY HISTORY CAUTERY? NO HORMONES? (name NO INTRAUTERINE DEVICE? NO LESION VISIBLE? NO RADIATION? (date NO SOURCE ECTOCERVICAL/ENDOCERVICAL Thin Prep with Reflex HPV Test The Pap Smear is a screening test designed to aid in the detection of premalign ant and malignant conditions of the uterine cervix. It is not a diagnostic procedure an d should not be used as the sole means of detecting cervical cancer. Both false-positive and false-negative reports do occur. Depending on your risk status, a Pap smear mary uld be obtained and evaluated every one to three years. PATIENT INFORMATION ACTUAL COLLECTION DATE: 07/25/05 ? NO POST MENOPAUSAL? Yes HYSTERECTOMY? No Post menopausal -- Signed Arleen JAMES CT(ASCP) 07/30/05 -- END OF REPORT 73 FASTING 74 Classification: High . 75 Classification: High . 76 CALCULATED LDL APPROXIMATES THE VALUE OF A DIRECT LDL MEASUREMENT. Classification: Very High . 77 Anion gap measurement may be of limited value in the presence of any alkalosis, especially in a combined acid base disorder. . 78 Classification: High . 79 Classification: High . 80 CALCULATED LDL APPROXIMATES THE VALUE OF A DIRECT LDL MEASUREMENT. Classification: Very High . 81 Source: URINE,VOIDED No growth. 82 Cholesterol Risk Levels (NIH) Recommended: under 200 mg/dl Borderline : 200-239 mg/dl High Risk : Above 240 mg/dl . 83 CHOL/HDL Risk Ratio Levels MALE FEMALE 1/2 X Average 3.4 3.3 Average 5.0 4.4 2 X Average 9.5 7.0 3 X Average 24.0 11.0 . 84 LDL/HDL Risk Ratio Levels MALE FEMALE 1/2 X Average 1.00 1.47 Average 3.55 3.22 2 X Average 6.25 5.03 3 X Average 7.99 6.14 . 85 LDL Cholesterol Risk Levels (NIH) Recommended: under 130 mg/dl Borderline: 131 - 159 mg/dl High Risk: above 160 mg/dl . Procedures Date CPT Code Description Status Comment 04/02/2014 Colonoscopy Completed One hyperplastic polyp. Repeat 2023. 01/12/2003 51949 EKG, at Least 12 Leads Completed w/Interpretation and Report Encounters Type Date Location Provider CPT E/M Dx Office Visit 10/18/2016 9:30a Main Office Marisabel Stockton M.D. 67566 Z00.01 Z87.892 M81.0 E78.00 E55.9 Z12.31 D48.5 Z12.11 Office Visit 09/13/2016 4:45p [place] [address] J01.90 Office Visit 08/30/2016 10:45a Main Office BABITA Fuentes-Maco 54387 R23.2 Office Visit 03/19/2016 5:15p [place] [address] R21 Office Visit 01/12/2016 4:45p [place] [address] H60.392 Office Visit 10/18/2015 12:00p Main Office Marisabel Stockton M.D. 11068 Z00.01 E55.9 E78.0 M81.0 D48.5 Z12.11 Office Visit 01/01/2015 9:45a Main Office Madison Mckenzie M.D., Susan 87603 461.8 Office Visit 04/19/2014 4:30p Main Office Madison Mckenzie M.D., Susan 72811 372.72 530.81 784.0 Office Visit 04/12/2014 11:30a Main Office Marisabel Stockton M.D. 56712 V70.0 733.99 268.9 272.0 599.70 Office Visit 02/10/2014 4:15p Main Office CONSUELO Fuentes 85789 782.9 Office Visit 02/19/2013 9:30a Main Office Marisabel Stockton M.D. 98810 V70.0 733.99 272.0 268.9 599.70 054.9 V76.51 V06.1 Office Visit 04/07/2012 11:30a Main Office Marisabel Stockton M.D. 59625 616.10 Office Visit 03/07/2012 3:00p Main Office CONSUELO Rios 34060 477.9 Office Visit 02/11/2012 3:45p Main Office Madison Mckenzie M.D., Susan 32823 461.8 Office Visit 04/18/2011 2:15p Main Office CONSUELO Fuentes 21709 V72.31 V70.0 Office Visit 07/26/2009 4:30p Main Office Marisabel Stockton M.D. 96067 530.81 Office Visit 06/13/2009 4:30p Main Office Marisabel Stockton M.D. 00274 E906.4 915.4 Office Visit 05/02/2009 10:15a Main Office Marisabel Stockton M.D. 00600 V72.31 733.99 272.0 530.81 V76.51 Office Visit 04/16/2008 8:45a Main Office Sanju Avery 16664 V72.31 V70.0 V76.2 272.0 529.9 733.99 627.8 Office Visit 12/12/2007 10:45a Main Office Joey Lin M.D. 65102 728.71 078.10 Office Visit 02/27/2007 9:45a Main Office Marisabel Stockton M.D. 03333 V72.31 272.0 709.9 Office Visit 07/25/2005 9:00a Main Office Mraisabel Stockton M.D. 92203 V72.31 709.9 529.9 272.0 Office Visit 05/08/2005 1:00p Main Office Marisabel Stockton M.D. 16696 536.8 529.9 Office Visit 02/14/2005 3:30p Main Office Miroslava Ace M.D. 21777 692.6 Office Visit 05/16/2004 4:15p Main Office Marisabel Stockton M.D. 26731 709.9 Office Visit 02/16/2004 9:45a Main Office Marisabel Stockton M.D. 98703 V72.3 272.0 493.90 733.99 795.0 Office Visit 03/15/2003 11:15a Main Office Marisabel Stockton M.D. 72638 530.81 493.90 Office Visit 02/09/2003 4:45p Main Office Marisabel Stockton M.D. 46716 530.81 786.2 Office Visit 01/12/2003 3:30p Main Office Marisabel Stockton M.D. 58695 786.2 786.59 530.81 272.0 Office Visit 12/07/2002 3:15p [place] [address] 786.2 Office Visit 09/08/2002 3:45p [place] [address] V72.3 Office Visit 04/28/2002 10:30a Main Office Marisabel Stockton M.D. 40343 V70.0 599.7 733.00 272.0 Plan of Care Future Appointment(s):04/02/2018 2:15 pm - Marisabel Stockton M.D. at Main Cjjwoa9703/03/2018 - Madelin Mcleod, NPS00.06xA Insect bite (nonvenomous) of scalp, initial encounterComments:No acute concerns today.It is difficulty to fully assess scalp for rash due to hair. Area is pinkishread as mentioned above , but I suspected this is local irritation for itching. Lyme serology ordered.Educated on new/worsening symptoms and when to call/return. Patient stated understanding and agrees to plan
--- NOTE | 2018-04-02 02:36 | ED ---
Allergic Reaction/Systemic - HPI Summary HPI Summary: This is naida Perez documenting for attending Giorgi Steele MD. This patient is a 63 year old F presenting to [facility] accompanied by her with a chief complaint of a possible allergic reaction since 1244. Pt woke up at this time and noticed a rash that she believes was due to eating BBQ sauce that may have had celery in it (which she is allergic to). The patient rates the pain 0/10 in severity. Symptoms alleviated by epipen and Benadryl. Patient reports SOB and anxiety. She states her throat feels ok and her breathing is not affected. She declined steroid use because in the past it gave her palpitations. - History of Current Complaint Chief Complaint: EDAllergicReaction Time Seen by Provider: 04/02/18 02:26 Hx Obtained From: Patient Onset/Duration: Sudden Onset, Resolved Timing: Intermittent Severity Initially: Moderate Severity Currently: None Pain Intensity: 0 Pain Scale Used: 0-10 Numeric Location: Diffuse Alleviating Factor(s): Antihistamines, Epinephrine Associated Signs And Symptoms: Positive: Other: - SOB and anxiety - Allergies/Home Medications Allergies/Adverse Reactions: Allergies Allergy/AdvReac Type Severity Reaction Status Date / Time No Known Allergies Allergy Verified 03/14/14 16:35 PMH/Surg Hx/FS Hx/Imm Hx Endocrine/Hematology History: Denies: Hx Sickle Cell Disease, Hx Unexplained Bleeding, Hx Coagulopothy Cardiovascular History: Denies: Hx Auto Implanted Cardiovert Defib, Hx Coronary Artery Disease, Hx Deep Vein Thrombosis, Hx Hypercholesterolemia Respiratory History: Denies: Hx Chronic Bronchitis, Hx Chronic Obstructive Pulmonary Disease (COPD ) GI History: Denies: Hx Pyloric Stenosis Musculoskeletal History: Denies: Hx Rheumatoid Arthritis, Hx Osteoporosis Sensory History: Reports: Hx Contacts or Glasses Opthamlomology History: Reports: Hx Contacts or Glasses - Cancer History Hx Chemotherapy: No Hx Radiation Therapy: No - Surgical History Surgery Procedure, Year, and Place: MAXILLOFACIAL SURGERY Infectious Disease History: No Infectious Disease History: Denies: Traveled Outside the [place] in Last 30 Days - Family History Known Family History: Positive: Hypertension - Social History Lives: With Family Alcohol Use: Daily Substance Use Type: Reports: None Review of Systems Positive: Other - allergic reaction . Negative: Fever Positive: Shortness Of Breath Positive: Anxious All Other Systems Reviewed And Are Negative: Yes Physical Exam - Summary Physical Exam Summary: Appearance: Well appearing, no pain distress Skin: warm, dry, reflects adequate perfusion Head/face: normal Eyes: EOMI, VEDA ENT: normal Neck: supple, non-tender Respiratory: CTA, breath sounds present Cardiovascular: RRR, pulses symmetrical Abdomen: non-tender, soft Bowel: present Musculoskeletal: normal, strength/ROM intact Neuro: normal, sensory motor intact, A&Ox3 Triage Information Reviewed: Yes Vital Signs On Initial Exam: Initial Vitals Temp Pulse Resp BP Pulse Ox 98.2 F 82 22 139/86 98 04/02/18 02:13 04/02/18 02:13 04/02/18 02:13 04/02/18 02:13 04/02/18 02:13 Vital Signs Reviewed: Yes Diagnostics - Vital Signs Vital Signs Temp Pulse Resp BP Pulse Ox 04/02/18 02:13 98.2 F 82 22 139/86 98 - Laboratory Lab Statement: Any lab studies that have been ordered have been reviewed, and results considered in the medical decision making process. Allergic Reaction Course/Dx - Course Assessment/Plan: This patient is a 63 year old F presenting to [facility] accompanied by her with a chief complaint of a possible allergic reaction since 1244. Pt woke up at this time and noticed a rash that she believes was due to eating BBQ sauce that may have had celery in it (which she is allergic to). The patient rates the pain 0/10 in severity. Symptoms alleviated by epipen and Benadryl. Patient reports SOB and anxiety. She states her throat feels ok and her breathing is not affected. She declined steroid use because in the past it gave her palpitations. Since the patient declined steroid use she was observed in the ED for 30 minutes. At this time she was feeling better and was ready to return home. The patient is agreeable with this plan. - Diagnoses Provider Diagnoses: Allergic reaction Discharge - Sign-Out/Discharge Documenting (check all that apply): Patient Departure - Discharge Plan Condition: Stable Disposition: HOME Patient Education Materials: Food Allergy (ED) Referrals: Marisabel Stockton MD [Primary Care Provider] - 3 Days Additional Instructions: RETURN TO THE EMERGENCY DEPARTMENT FOR CHANGING OR WORSENING SYMPTOMS
[2018-04-02 03:19] VITALS: BP 119/63
== END | disposition home or self-care (01) ==
LOC: ED 02:06
DX: T78.40XA Allergy, unspecified, initial encounter (principal); R06.02 Shortness of breath; F41.9 Anxiety disorder, unspecified; X58.XXXA Exposure to other specified factors, initial encounter
CPT/HCPCS: 99281

== ENCOUNTER 2018-04-02 19:39 | Emergency (ER) | payer BC, OTHER ==
--- NOTE | 2018-04-02 20:02 | ED ---
Allergic Reaction/Systemic - HPI Summary HPI Summary: This is Wally Melvin documenting for attending Irina Hedrick MD. Pt is a 63 y/o F presents to ED with continuous feelings of allergic reaction. Assoc Sx: Dry mouth. Denies: CP, SOB, increased HR. Patient took 50 mg Benadryl ~1600 in attempts to alleviate Sx. Patient reports that dry mouth onset this evening ~1830 which concerned patient because that was her first symptom when having previous episode. She presents to ED, as instructed in prior visit, with concerns of similar symptoms to a previous allergic reaction. Pt had an allergic reaction last night in which she presented to ED and was treated. She took 50 mg Benadryl which failed to alleviate Sx but used eppipen which alleviated her Sx. Prior episode: Assoc. Sx: hives, throat constriction, dry mouth. Denies: CP, SOB , increased HR. Recieved steroidal treatment and started experiencing following. Sx: palpitations, nervous, shaking. She notes they were in [place] last week in which she contracted a rash. She took benadryl which alleviated the rash. Pt reports extensive allergy test done which said she was allergic to celery. She states she has been trying to drink a lot of water. She notes that her throat does not feel as constricted now. - History of Current Complaint Chief Complaint: EDAllergicReaction Time Seen by Provider: 04/02/18 19:43 Hx Obtained From: Patient Onset/Duration: Sudden Onset, Started weeks ago Timing: Constant Pain Intensity: 0 Pain Scale Used: 0-10 Numeric Alleviating Factor(s): Other - benadryl, eppipen. Associated Signs And Symptoms: Positive: Other: - NEG: SOB, increased HR. POS: dry mouth, throat swelling, hives.. Negative: Chest Pain - Allergies/Home Medications Allergies/Adverse Reactions: Allergies Allergy/AdvReac Type Severity Reaction Status Date / Time No Known Allergies Allergy Verified 03/14/14 16:35 PMH/Surg Hx/FS Hx/Imm Hx Endocrine/Hematology History: Denies: Hx Sickle Cell Disease, Hx Unexplained Bleeding Cardiovascular History: Denies: Hx Auto Implanted Cardiovert Defib, Hx Coronary Artery Disease, Hx Deep Vein Thrombosis, Hx Hypercholesterolemia Respiratory History: Denies: Hx Chronic Bronchitis, Hx Chronic Obstructive Pulmonary Disease (COPD ) GI History: Denies: Hx Pyloric Stenosis Musculoskeletal History: Denies: Hx Rheumatoid Arthritis, Hx Osteoporosis Sensory History: Reports: Hx Contacts or Glasses Opthamlomology History: Reports: Hx Contacts or Glasses - Cancer History Hx Chemotherapy: No Hx Radiation Therapy: No - Surgical History Surgery Procedure, Year, and Place: MAXILLOFACIAL SURGERY Infectious Disease History: No Infectious Disease History: Denies: Traveled Outside the [place] in Last 30 Days - Family History Known Family History: Positive: Hypertension - Social History Occupation: Employed Full-time Lives: With Family Alcohol Use: Daily Substance Use Type: Reports: None Smoking Status (MU): Unknown if Ever Smoked Review of Systems Positive: Other - POS: increased HR Positive: Other - Dry mouth, throat swelling Negative: Chest Pain Negative: Shortness Of Breath Positive: Rash - hives All Other Systems Reviewed And Are Negative: Yes Physical Exam - Summary Physical Exam Summary: GENERAL: Patient is a well developed and nourished __F__ who is lying comfortable in the stretcher. Patient is not in any acute respiratory distress. HEAD AND FACE: Normocephalic EYES: PERRLA, EOMI x 2. EARS: Hearing grossly intact. MOUTH: Oropharynx within normal limits but dry, uvula midline and non-swollen NECK: Supple, trachea is midline, no adenopathy, no JVD, no carotid bruit. CHEST: Symmetric, no tenderness at palpation LUNGS: Clear to auscultation bilaterally. No wheezing or crackles. CVS: Regular rate and rhythm, S1 and S2 present, no murmurs or gallops appreciated. ABDOMEN: Soft, non-tender. Bowel sounds are normal. No abdominal abnormal pulsations. EXTREMITIES: Full ROM in all major joints, no edema, no cyanosis or clubbing. NEURO: Alert and oriented x 3. No acute neurological deficits. Speech is normal and follows commands. SKIN: Dry and warm Triage Information Reviewed: Yes Vital Signs On Initial Exam: Initial Vitals Temp Pulse Resp BP Pulse Ox 98.8 F 81 22 168/116 99 04/02/18 19:46 04/02/18 19:46 04/02/18 19:46 04/02/18 19:46 04/02/18 19:46 Vital Signs Reviewed: Yes Diagnostics - Vital Signs Vital Signs Temp Pulse Resp BP Pulse Ox 04/02/18 19:46 98.8 F 81 22 168/116 99 - Laboratory Lab Statement: Any lab studies that have been ordered have been reviewed, and results considered in the medical decision making process. Allergic Reaction Course/Dx - Course Course Of Treatment: 63-year-old female who is presenting to the emergency room with dryness in her throat after taking 50 of Benadryl for possible allergic reaction. On examination, patient is hemodynamically stable and does have dry mucous membranes and dry oropharynx which I think is most likely induced by the anticholinergic effect of the Benadryl. Patient given orange juice with much improvement and is requesting to be discharged at this time. Patient is otherwise hemodynamically stable and safe for discharge home with strict return precautions and will otherwise follow up with her doctor. - Diagnoses Provider Diagnoses: Allergic reaction Discharge - Sign-Out/Discharge Documenting (check all that apply): Patient Departure - Discharge Plan Condition: Stable Disposition: HOME Patient Education Materials: Food Allergy (ED) Referrals: Marisabel Stockton MD [Primary Care Provider] - 3 Days Additional Instructions: RETURN TO THE EMERGENCY DEPARTMENT FOR CHANGING OR WORSENING SYMPTOMS. Follow up with your primary care physician in 1-3 days. - Billing Disposition and Condition Condition: STABLE Disposition: Home
[2018-04-02 21:00] VITALS: BP 122/77
== END 2018-04-02 20:57 | disposition home or self-care (01) ==
LOC: ED 19:39
DX: T78.40XA Allergy, unspecified, initial encounter (principal); X58.XXXA Exposure to other specified factors, initial encounter
CPT/HCPCS: 99282

== ENCOUNTER 2019-03-15 14:14 | Emergency (ER) | payer BC ==
--- OUTSIDE RECORDS SUMMARY | 2019-03-15 14:26 | XMS REPORT | Continuity of Care Document ---
:1955 External Reference #:[id number] Author Name Shamar Rivas MD Address [address] [place] [address] Care Team Providers Name Role Phone Marisabel No MD Care Team Information Research Physiologist Unavailable Marisabel No MD Primary Care Physician Unavailable Payers Date Identification Numbers Payment Provider Subscriber Effective: 2017 Policy Number: [id number] BS [employer] Ashely Fernandez PayID: [id number] [address] [address] [place] [address] Expires: 2018 Policy Number: [id number] [employer] Aaron Fernandez PayID: [id number] [address] [place] [address] Problems Active Problems Provider Date Osteochondropathy Marisabel No MD Onset: 10/18/2015 Disorder of bone Marisabel No MD Onset: 05/10/2012 Food anaphylaxis Shamar Rivas MD Onset: 11/30/2016 Allergy to other foods Shamar Rivas MD Onset: 11/30/2016 Personal history of anaphylaxis LLOYD Norris Onset: 2016 Allergic urticaria LLOYD Norris Onset: 10/13/2018 Idiopathic urticaria LLOYD Norris Onset: 09/24/2018 Family History Date Family Member(s) Observation Comments General No Current Problems Social History Type Date Description Comments Sex Unknown Smoke-Free Home is smoke-free Tobacco Use Start: Unknown Patient has never smoked Smoking Status Reviewed: 03/02/19 Patient has never smoked Allergies, Adverse Reactions, Alerts Active Allergies Reaction Severity Comments Date Bee Sting 10/18/2016 Acetaminophen Anaphylaxis Severe 08/30/2016 Celery Severe 08/13/2018 Medications Active Medications SIG Qnty Indications Ordering Provider Date Vitamin D Take 1 Capsule By 4caps Marybel, 01/16/2019 (Ergocalciferol) Mouth Once Weekly MD Marisabel For Vitamin-D 53180Iptt Capsules Deficiency Vitamin B-[facility]2018 1000mcg day- sublingual- MD Marisabel Tablets for vitamin b12 deficiency Alendronate S[facility] 1 [facility] 70mg weekly on an MD Marisabel Tablets empty stomach with full 8oz of water, do not eat, drink, take other meds, or lie down x 1 hour Epipen 2-Antonio as directed 2units T78.00xA Shamar Pool 11/30/2016 MD Rob 0.3mg/0.3ML Solution Auto-Inject Ergocalciferol Take 1 Capsule By 4caps Marybel, 06/03/2016 Mouth Once Weekly MD Marisabel 51040Lift Capsules For Vitamin-D Deficiency Clobetasol Propionate use once per day 15units Marybel, 04/07/2012 to vulva as MD Marisabel 0.05% Cream directed for 1-2 weeks Multivitamin Women Unknown 50+ 50+ Tablets [facility] Vitamin B12 Unknown 1000mcg Tablets ER History Medications Desloratadine Take one tablet 30tabs L50.1 Shamar Pool 09/24/2018 - 5mg Tablets by mouth daily MD Rob 03/02/2019 in the morning. Levocetirizine Take one tablet 30tabs L50.1 Shamar Pool 09/24/2018 - Dihydrochloride by mouth daily MD Rob 03/02/2019 5mg at bedtime Tablets Nelia Allergy 1 tab everyday 30tabs Z87.892 Shamar Pool 04/04/2018 - 180mg as needed MD Rob 07/07/2018 Tablets Epipen 2-Antonio Use as directed 2units Shamar Pool 08/30/2016 - 0.3mg/0.3ML as needed for MD Rob 07/07/2018 Solution Auto-Inject anaphylaxis. Alendronate Sodium Unknown - 70mg 03/02/2019 Tablets Immunizations CPT Code Status Date Vaccine Lot # [id number] Given 08/16/2017 Fluarix Quadrivalent, Preservative Free 0.5mL 59102 Given 02/19/2013 Tetanus, Diphtheria Toxoids/Acellular Pertussis Vaccine 7 Or > 46568 Given 03/11/2000 Td Toxoids Adsorbed For Use 7Yrs Or Older For Intramuscular Use 31992 Refused 01/12/2016 Fluarix Quadrivalent, Preservative Free 0.5mL Vital Signs Date Vital Result Comment 03/02/2019 9:39am BP Systolic 112 mmHg BP Diastolic 78 mmHg Height 61 inches 5'1" Weight 110.00 lb BMI (Body Mass Index) 20.8 kg/m2 Heart Rate 53 /min Respiratory Rate 16 /min Body Temperature 97.2 F O2 % BldC Oximetry 98 % 12/01/2018 4:16pm BP Systolic 110 mmHg BP Diastolic 72 mmHg Height 61 inches 5'1" Weight 110.00 lb BMI (Body Mass Index) 20.8 kg/m2 Heart Rate 57 /min Respiratory Rate 16 /min Body Temperature 98.5 F O2 % BldC Oximetry 97 % 10/13/2018 3:37pm BP Systolic 104 mmHg BP Diastolic 70 mmHg Height 61 inches 5'1" Weight 106.00 lb BMI (Body Mass Index) 20.0 kg/m2 Respiratory Rate 16 /min Body Temperature 98.7 F O2 % BldC Oximetry 99 % 09/24/2018 1:33pm BP Systolic 110 mmHg BP Diastolic 70 mmHg Height 61 inches 5'1" Weight 106.00 lb BMI (Body Mass Index) 20.0 kg/m2 Heart Rate 55 /min Respiratory Rate 16 /min O2 % BldC Oximetry 99 % 08/07/2018 11:08am O2 % BldC Oximetry 98 % 08/07/2018 11:08am Weight 107.00 lb 08/07/2018 11:08am BP Systolic 120 mmHg BP Diastolic 76 mmHg Height 61.5 inches Weight 107.00 lb BMI (Body Mass Index) 19.9 kg/m2 Heart Rate 60 /min Respiratory Rate 16 /min Body Temperature 98.2 F 07/07/2018 3:57pm BP Systolic 138 mmHg BP Diastolic 78 mmHg Height 61.5 inches 5'1.50" Weight 106.00 lb BMI (Body Mass Index) 19.7 kg/m2 Heart Rate 47 /min Respiratory Rate 16 /min Body Temperature 98.1 F O2 % BldC Oximetry 99 % 04/04/2018 8:58am BP Systolic 160 mmHg BP Diastolic 101 mmHg Height 61.5 inches 5'1.50" Weight 108.12 lb BMI (Body Mass Index) 20.1 kg/m2 Heart Rate 53 /min Body Temperature 98.2 F O2 % BldC Oximetry 96 % 01/04/2017 3:57pm BP Systolic 106 mmHg BP Diastolic 68 mmHg Height 61.5 inches 5'1.50" Weight 108.00 lb BMI (Body Mass Index) 20.1 kg/m2 Heart Rate 54 /min Respiratory Rate 16 /min Body Temperature 96.7 F O2 % BldC Oximetry 99 % 11/30/2016 3:50pm BP Systolic 118 mmHg BP Diastolic 72 mmHg Height 61.5 inches 5'1.50" Weight 106.00 lb BMI (Body Mass Index) 19.7 kg/m2 Heart Rate 76 /min Respiratory Rate 14 /min 10/18/2016 9:29am BP Systolic 110 mmHg BP Diastolic 70 mmHg Height 61.5 inches Weight 105.00 lb BMI (Body Mass Index) 19.5 kg/m2 Heart Rate 56 /min Respiratory Rate 12 /min Body Temperature 98.3 F Results Test Date Facility Test Result H/L Range Note Order 03/02/2019 [facility] Blood Collection via < pending> Venipuncture R[employer] <pending> Order 03/02/2019 [facility] Skin Test Food <pending > Order 09/24/2018 [facility] Blood Collection via < pending> Venipuncture [employer] <pending> Laboratory test finding 08/07/2018 N2N/CCD Import Albumin 4.4 g/dL 3.2- 5.2 Albumin/Globulin Ratio 1.8 1 1-3 Alkaline Phosphatase 40 U/L 34-104 Alt 16 U/L 7-52 Anion Gap 5 mmol/L 2-11 Ast 24 U/L 13-39 BUN/Creatinine Ratio 20.0 1 8-20 Blood Urea Nitrogen 15 mg/dL 6-24 Calcium 9.7 mg/dL 8.6-10.3 Celiac Interpretation See Comment 1 Chloride 106 mmol/L 101-111 Co2 Carbon Dioxide 29 mmol/L 22-32 Creatinine 0.75 mg/dL 0.51-0.95 Egfr 93.8 1 2 Egfr Non- 77.6 1 Free T4 (Free Thyroxine) 0.59 ng/dL Low 0.61-1.12 3 Globulin 2.4 g/dL 2-4 Glucose 88 mg/dL 70-100 Immunoglobulin A 256 mg/dL 61-356 Nuclear AB (Jeannine) By Ifa Igg <1:80 (Negative) 4 Potassium 4.9 mmol/L 3.5-5 Sodium 140 mmol/L 135-145 TSH (Thyroid Stim Horm) 2.23 mcIU/mL 0.34-5.6 5 Tissue Transglutaminase IgA Ab <1.2 U/mL 6 Total Bilirubin 0.60 mg/dL 0.2-1 Total Protein 6.8 g/dL 6.4-8.9 Vitamin B12 260 pg/mL 180-914 7 CBC Auto Diff 08/07/2018 N2N/CCD Import Abs Basophils 0 10^3/uL 0-0.2 Abs Eosinophils 0.1 10^3/uL 0-0.6 Abs Lymphocytes 1.4 10^3/uL 1-4.8 Abs Monocytes 0.5 10^3/uL 0-0.8 Abs Neutrophils 4.0 10^3/uL 1.5-7.7 Abs Nucleated RBC 0 10^3/uL Basophil % 0.5 % Eosinophil % 1.7 % Granulocyte % 65.7 % Hematocrit 41 % 35-47 Hemoglobin 13.6 g/dL 12-16 Lymphocyte % 23.5 % Mean Corpuscular HGB Conc 34 g/dL 31-36 Mean Corpuscular Hemoglobin 32 pg High 27-31 Mean Corpuscular Volume 95 fL 80-97 Mean Platelet Volume 7.9 fL 7.4-10.4 Monocyte % 8.6 % Nucleated Red Blood Cells % 0.2 1 Platelet Count 311 10^3/uL 150-450 Red Blood Count 4.29 10^6/uL 4-5.4 Red Cell Distribution Width 13 % 10.5-15 White Blood Count 6.0 10^3/uL 3.5-10.8 CBC Auto Diff 08/07/2018 N2N/CCD Import White Blood Count 6.0 10^3/uL 3.5-10.8 Red Blood Count 4.29 10^6/uL 4-5.4 Hemoglobin 13.6 g/dL 12-16 Hematocrit 41 % 35-47 Mean Corpuscular Volume 95 fL 80-97 Mean Corpuscular Hemoglobin 32 pg High 27-31 Mean Corpuscular HGB Conc 34 g/dL 31-36 Red Cell Distribution Width 13 % 10.5-15 Platelet Count 311 10^3/uL 150-450 Mean Platelet Volume 7.9 fL 7.4-10.4 Abs Neutrophils 4.0 10^3/uL 1.5-7.7 Abs Lymphocytes 1.4 10^3/uL 1-4.8 Abs Monocytes 0.5 10^3/uL 0-0.8 Abs Eosinophils 0.1 10^3/uL 0-0.6 Abs Basophils 0 10^3/uL 0-0.2 Abs Nucleated RBC 0 10^3/uL Granulocyte % 65.7 % Lymphocyte % 23.5 % Monocyte % 8.6 % Eosinophil % 1.7 % Basophil % 0.5 % Nucleated Red Blood Cells % 0.2 1 Lab Results 08/07/2018 N2N/CCD Import Sodium 140 mmol/L 135-145 Potassium 4.9 mmol/L 3.5-5 Chloride 106 mmol/L 101-111 Co2 Carbon Dioxide 29 mmol/L 22-32 Anion Gap 5 mmol/L 2-11 Glucose 88 mg/dL 70-100 Blood Urea Nitrogen 15 mg/dL 6-24 Creatinine 0.75 mg/dL 0.51-0.95 BUN/Creatinine Ratio 20.0 1 8-20 Calcium 9.7 mg/dL 8.6-10.3 Total Protein 6.8 g/dL 6.4-8.9 Albumin 4.4 g/dL 3.2-5.2 Globulin 2.4 g/dL 2-4 Albumin/Globulin Ratio 1.8 1 1-3 Total Bilirubin 0.60 mg/dL 0.2-1 Alkaline Phosphatase 40 U/L 34-104 Alt 16 U/L 7-52 Ast 24 U/L 13-39 Egfr Non- 77.6 1 Egfr 93.8 1 8 TSH (Thyroid Stim Horm) 2.23 mcIU/mL 0.34-5.6 9 Free T4 (Free Thyroxine) 0.59 ng/dL Low 0.61-1.12 10 Nuclear AB (Jeannine) By Ifa Igg <1:80 (Negative) 11 Tissue Transglutaminase IgA Ab <1.2 U/mL 12 Immunoglobulin A 256 mg/dL 61-356 Celiac Interpretation See Comment 13 Vitamin B12 260 pg/mL 180-914 14 Order 11/30/2016 [facility] Epinephrine <pending> Injector Training Laboratory test 12/28/2015 N2N/CCD Import Vitamin D Total 45.0 ng/mL 30- 50 15 finding 25(Oh) 1 Negative serology. Celiac disease unlikely. However, approximately 10% of patients with celiac disease are seronegative. Also, patients who are already adhering to a gluten-free diet may be seronegative. If celiac disease is highly clinically suspected, consider HLA-DQ typing. Test Performed by: [place] [id number] 2 Because ethnic data is not always [...] 5 Kidney failure <15 (or dialysis) 3 [id number] Copy Result to: SHAMAR RIVAS ([id number]) 4 <1:80 (Negative) REFERENCE VALUE <1:80 (Negative) Test Performed by: [address] [address] 5 [id number] Copy Result to: SHAMAR RIVAS ([id number]) 6 REFERENCE VALUE <4.0 (Negative) Test Performed by: [place] [id number] 7 Normal Range 180 to 914 Indeterminate Range 145 to 180 Deficient Range <145 8 Because ethnic data is not always readily [...] 15-29 5 Kidney failure <15 (or dialysis) 9 [id number] Copy Result to: SHAMAR RIVAS ([id number]) 10 [id number] Copy Result to: SHAMAR RIVAS ([id number]) 11 <1:80 (Negative) REFERENCE VALUE <1:80 (Negative) Test Performed by: [address] [address] 12 [id number] Copy Result to: SHAMAR RIVAS ([id number]) 13 <1:80 (Negative) REFERENCE VALUE <1:80 (Negative) Test Performed by: [address] [address] 14 [id number] Copy Result to: SHAMAR RIVAS ([id number]) 15 [id number] Procedures Date Code Description Status 03/02/2019 68684 Allergy Tests Percutaneous W/ Allergenic Extracts Completed 07/07/2018 45971 Allergy Tests Percutaneous W/ Allergenic Extracts Completed 11/30/2016 99817 Education/Training PT Self-Management Each 30Minutes Indiv Completed PT Encounters Type Date Location Provider Dx Diagnosis Office Visit 03/02/2019 9:30a Bruner Yvonne S. L50.0 Allergic urticaria Fenstermacher, RPA-C Z87.892 Personal history of anaphylaxis Office Visit 12/01/2018 4:00p Bruner Yvonne S. Fenstermacher, L50.0 Allergic urticaria RPA-C Z91.018 Allergy to other foods Z87.892 Personal history of anaphylaxis Office Visit 10/13/2018 3:30p Bruner Yvonne S. Fenstermacher, L50.0 Allergic urticaria RPA-C Z91.018 Allergy to other foods Z87.892 Personal history of anaphylaxis Office Visit 09/24/2018 1:30p Bruner Yvonne S. Fenstermacher, L50.1 Idiopathic RPA-C urticaria Z91.018 Allergy to other foods Z87.892 Personal history of anaphylaxis Office Visit 07/07/2018 4:00p Bruner Yvonne S. Z91.018 Allergy to other Fenstermacher, RPA-C foods Office Visit 04/04/2018 9:00a Leonel Rivas Z87.892 Personal history MD of anaphylaxis Z91.018 Allergy to other foods Office Visit 01/04/2017 4:00p Brunermaggie Cheungan S. Z87.892 Personal history Fenstermacher, RPA-C of anaphylaxis Z91.018 Allergy to other foods Office Visit 11/30/2016 3:30p Leonel Rivas Z91.018 Allergy to other MD foods T78.00XA Anaphylactic reaction due to unspecified food, init encntr T78.00xA Anaphylactic reaction due to unspecified food, init encntr Plan of Treatment 03/02/2019 - Yvonne S. Fenstermacher, RPA-CL50.0 Allergic urticariaComments: Patient with history of allergic urticaria. She has been able to reintroduce small amounts of pea, onion and garlic back into her diet without return of hives. She is requesting repeat allergy testing for strawberry and tomato prior to reintroduction.Patient developed large wheal and flare reaction toall skin tests, including negative control. I will RAST patient to strawberry and tomato , as skin testing is invalid. Continue strict avoidance of celery. Continue to carry EpiPen at all times.Follow up:6 months.Z87.892 Personal history of anaphylaxisComments:Patient has history of food dependent exercise induced anaphylaxis (FDEIA). Continue strict avoidance of celery. Continue to carry EpiPen at all times.Follow up:6 months.
--- OUTSIDE RECORDS SUMMARY | 2019-03-15 14:26 | XMS REPORT | Continuity of Care Document ---
:1955 External Reference #:[id number] Author Name Leslie Sutton Care Team Providers Name Role Phone Marisabel No MD Care Team Information Bulk Tank Driver Unavailable Marisabel No MD Primary Care Physician Unavailable Payers Date Identification Numbers Payment Provider Subscriber Effective: 2017 Policy Number: [id number] [employer] Ashely Fernandez PayID: [id number] [address] [address] [place] [address] Expires: 2018 Policy Number: [id number] [employer] Aaron Fernandez PayID: [id number] [address] [place] [address] Problems Active Problems Provider Date Osteochondropathy Marisabel [...] Patient has never smoked Smoking Status Reviewed: 10/13/18 Patient has never smoked Allergies, Adverse Reactions, Alerts Active Allergies Reaction Severity Comments Date Bee Sting 10/18/2016 Acetaminophen Anaphylaxis Severe 08/30/2016 Celery Severe 08/13/2018 Medications Active Medications SIG Qnty Indications Ordering Provider Date Vitamin D Take 1 Capsule By 4caps Marybel, 01/16/2019 (Ergocalciferol) Mouth Once Weekly MD Marisabel For Vitamin-D 72003Uawf Capsules Deficiency Vitamin [facility] 1000mcg day- sublingual- MD Marisabel Tablets for vitamin b12 deficiency Alendronate Sodium 1 by mouth once [facility] 05/16/2017 70mg weekly on an MD Marisabel Tablets empty stomach with full 8oz of water, do not eat, drink, take other meds, or lie down x 1 hour Epipen 2-Antonio as directed 2units T78.00xA Shamar Pool 11/30/2016 MD Rob 0.3mg/0.3ML Solution Auto-Inject Ergocalciferol Take 1 Capsule By 4cdelvin No, 06/03/2016 Mouth Once Weekly MD Marisabel 76584Sset Capsules For Vitamin-D Deficiency Clobetasol Propionate use once per day 15units MoreliaKath, 04/07/2012 to vulva as MD Marisabel 0.05% [...] CPT Code Status Date Vaccine Lot # [id number] Given 08/16/2017 Fluarix Quadrivalent, Preservative Free 0.5mL 35080 Given 02/19/2013 Tetanus, Diphtheria Toxoids/Acellular Pertussis Vaccine 7 Or > 80388 Given 03/11/2000 Td Toxoids Adsorbed For Use 7Yrs Or Older For Intramuscular Use 60776 Refused 01/12/2016 Fluarix Quadrivalent, Preservative Free 0.5mL [...] Facility Test Result H/L Range Note Order 09/24/2018 [facility] Blood Collection via [...] B12 260 pg/mL 180-914 14 Order 11/30/2016 [facility] Epinephrine <pending> Injector [...] suspected, consider HLA-DQ typing. Test Performed by: [place] [address] 2 Because ethnic data is not always [...] 5 Kidney failure <15 (or dialysis) 3 [id number] Copy Result to: SHAMAR RIVAS ([id number]) 4 <1:80 (Negative) REFERENCE VALUE <1:80 (Negative) Test Performed by: [address] [address] 5 [id number] Copy Result to: SHAMAR RIVAS ([id number]) 6 REFERENCE VALUE <4.0 (Negative) Test Performed by: [address] [address] 7 Normal Range 180 to 914 Indeterminate [...] 5 Kidney failure <15 (or dialysis) 9 [id number] Copy Result to: SHAMAR RIVAS ([id number]) 10 [id number] Copy Result to: SHAMAR RIVAS ([id number]) 11 <1:80 (Negative) REFERENCE VALUE <1:80 (Negative) Test Performed by: [place] [address] 12 [id number] Copy Result to: SHAMAR RIVAS ([id number]) 13 <1:80 (Negative) REFERENCE VALUE <1:80 (Negative) Test Performed by: [place] [address] 14 [id number] Copy Result to: SHAMAR RIVAS ([id number]) 15 [id number] Procedures Date Code Description Status 07/07/2018 38125 Allergy Tests Percutaneous W/ Allergenic Extracts Completed 11/30/2016 41065 Education/Training PT Self-Management Each 30Minutes Indiv Completed PT Encounters Type Date Location Provider Dx Diagnosis Office Visit 12/01/2018 4:00p Leonel Goss. L50.0 Allergic urticaria Fenstermacher, RPA-C Z91.018 Allergy to other foods Z87.892 Personal history of anaphylaxis Office Visit 10/13/2018 3:30p Leonel Goss. Fenstermacher, L50.0 Allergic urticaria RPA-C Z91.018 Allergy to other foods Z87.892 Personal history of anaphylaxis Office Visit 09/24/2018 1:30p Leonel Goss. Fenstermacher, L50.1 Idiopathic RPA-C urticaria Z91.018 Allergy to other foods Z87.892 Personal history of anaphylaxis Office Visit 07/07/2018 4:00p Leonel Russell S. Z91.018 Allergy to other Fenstermacher, RPA-C foods Office Visit 04/04/2018 9:00a Leonel Rivas Z87.892 Personal history MD of anaphylaxis Z91.018 Allergy to other foods Office Visit 01/04/2017 4:00p Leonel Yvonne S. Z87.892 Personal history Fenstermacher, RPA-C of anaphylaxis Z91.018 Allergy to other foods Office Visit 11/30/2016 3:30p Leonel Rivas Z91.018 Allergy to other MD foods T78.00XA Anaphylactic reaction due to unspecified food, init encntr T78.00xA Anaphylactic reaction due to unspecified food, init encntr Plan of Treatment 12/01/2018 - Yvonne Shahstermacher, RPA-CL50.0 Allergic urticariaComments: Hives currently well controlled. Continue Clarinex and Xyzal as prescribed. If patient remains asymptomatic, will attempt to taper antihistamines at 3 month follow-up.Follow up:3 months.Z91.018 Allergy to other foodsComments:Continue strict avoidance of celery. Okay to cautiously reintroduce tomato, strawberry and orange back into the diet.Z87.892 Personal history of anaphylaxisComments: Patient has history of food dependent exercise induced anaphylaxis. Patient to continue strict avoidance of celery. Continue to carry EpiPen at all times.
[2019-03-15 17:52] VITALS: BP 107/67
--- NOTE | 2019-03-27 00:05 | ED ---
Upper Extremity Pain - HPI Summary HPI Summary: PATIENT SEEN 03/15/2019: Lt hand dominant pt presents with Lt wrist pain and deformity since falling prior to arrival. Believes she has a fx. States she was running and had "bad footing" causing a mechanical fall - no syncope, dizziness, etc. She put her left arm out to catch herself on concrete. NOTE: pt has fractured this wrist twice before. Denies numbness, tingling, weakness and no bleeding or skin breakdown. No other injuries to report as a result of this fall. - History of Current Complaint Chief Complaint: EDExtremityUpper Stated Complaint: LEFT ARM INJURY PER PATIENT Time Seen by Provider: 03/15/19 15:23 Hx Obtained From: Patient - Allergies/Home Medications Allergies/Adverse Reactions: Allergies Allergy/AdvReac Type Severity Reaction Status Date / Time bee venom protein (honey bee) Allergy Anaphylatic Verified 03/15/19 14:22 Shock celery Allergy Anaphylatic Verified 03/15/19 14:22 Shock garlic Allergy Hives Verified 03/15/19 14:22 onion Allergy Hives Verified 03/15/19 14:22 strawberry Allergy Hives Verified 03/15/19 14:22 tomato Allergy Hives Verified 03/15/19 14:22 PMH/Surg Hx/FS Hx/Imm Hx Previously Healthy: Yes Endocrine/Hematology History: Denies: Hx Anticoagulant Therapy, Hx Sickle Cell Disease, Hx Unexplained Bleeding Cardiovascular History: Denies: Hx Auto Implanted Cardiovert Defib, Hx Coronary Artery Disease, Hx Deep Vein Thrombosis, Hx Hypercholesterolemia Respiratory History: Denies: Hx Chronic Bronchitis, Hx Chronic Obstructive Pulmonary Disease (COPD ) GI History: Denies: Hx Pyloric Stenosis Musculoskeletal History: Reports: Hx of Fracture(s) - Lt wrist multiple times Denies: Hx Rheumatoid Arthritis, Hx Osteoporosis Sensory History: Reports: Hx Contacts or Glasses Opthamlomology History: Reports: Hx Contacts or Glasses - Cancer History Hx Chemotherapy: No Hx Radiation Therapy: No - Surgical History Surgery Procedure, Year, and Place: MAXILLOFACIAL SURGERY Infectious Disease History: No Infectious Disease History: Denies: Traveled Outside the [place] in Last 30 Days - Family History Known Family History: Positive: Hypertension - Social History Lives: With Family Alcohol Use: Daily Hx Substance Use: No Substance Use Type: Reports: None Smoking Status (MU): Unknown if Ever Smoked Review of Systems Constitutional: Negative Eyes: Negative ENT: Negative Cardiovascular: Negative Respiratory: Negative Gastrointestinal: Negative Positive: no symptoms reported Positive: Arthralgia, Decreased ROM, Edema - Lt wrist Positive: Bruising Neurological: Negative Psychological: Normal All Other Systems Reviewed And Are Negative: Yes Physical Exam Triage Information Reviewed: Yes Vital Signs On Initial Exam: Initial Vitals Temp Pulse Resp BP Pulse Ox 99.4 F 59 14 138/80 96 03/15/19 14:15 03/15/19 14:15 03/15/19 14:15 03/15/19 14:15 03/15/19 14:15 Vital Signs Reviewed: Yes Appearance: Positive: Well-Appearing, No Pain Distress - appears comfortable sitting in chair with sling she fashioned prior to arrival, Well-Nourished Skin: Positive: Warm, Skin Color Reflects Adequate Perfusion, Dry - mild ecchymosis, edema and warmth about the injury site of Lt wrist - no skin breakdown and well perfused Head/Face: Positive: Normal Head/Face Inspection Eyes: Positive: EOMI ENT: Positive: Hearing grossly normal Respiratory/Lung Sounds: Positive: Breath Sounds Present Cardiovascular: Positive: Pulses are Symmetrical in both Upper and Lower Extremities - Left radial pulse +2 , cap refill < 2 secs, good color and temp to touch Musculoskeletal: Positive: Strength/ROM Intact - Lt shoulder, elbow and finger as well as on Rt side, Limited @ - Lt wrist which is w/ mild deformity Neurological: Positive: Normal, Sensory/Motor Intact, Alert, Oriented to Person Place, Time, CN Intact II-III Psychiatric: Positive: Normal Procedures - Splinting Left Upper Extremity Location: Lt UE Hand-Made Type: plaster Splint: volar - + dorsal short wrist Pre-Proc Neuro Vasc Exam: normal Post-Proc Neuro Vasc Exam: normal Diagnostics - Vital Signs Vital Signs Temp Pulse Resp BP Pulse Ox 03/15/19 17:51 98.2 F 42 16 107/67 98 03/15/19 14:15 99.4 F 59 14 138/80 96 - Laboratory Lab Statement: Any lab studies that have been ordered have been reviewed, and results considered in the medical decision making process. Course/Dx - Course Course Of Treatment: Discussed w/ Dr. Burton - advised volar and dorsal wrist splint w/ f/u. Pt advised and agrees w/ plan. Dangr s/sx reviewed - Diagnoses Provider Diagnoses: Closed fracture of left wrist Discharge - Sign-Out/Discharge Documenting (check all that apply): Patient Departure Patient Received Moderate/Deep Sedation with Procedure: No - Discharge Plan Condition: Stable Disposition: HOME Patient Education Materials: Wrist Fracture in Adults (ED), Splint Care (ED) Referrals: Lex Remy MD [Medical Doctor] - Additional Instructions: REST, ICE, ELEVATE AND KEEP SPLINT CLEAN, DRY AND IN PLACE UNTIL SEEN BY ORTHOPEDICS. Call orthopedics tomorrow to schedule follow-up this week. You may take ibuprofen alternating with acetaminophen as needed for pain *If you develop numbness, tingling, weakness, swelling or skin discoloration, loosen DAYNA wrap and elevate arm for 20 minutes. If symptoms persist, return to ED - Billing Disposition and Condition Condition: STABLE Disposition: Home
== END 2019-03-15 17:51 | disposition home or self-care (01) ==
LOC: ED 14:14
DX: S52.572A Other intraarticular fracture of lower end of left radius, initial encounter for closed fracture (principal); W18.30XA Fall on same level, unspecified, initial encounter; Y92.9 Unspecified place or not applicable
CPT/HCPCS: 99282